=== PATIENT | male | born 1950 ===

== ENCOUNTER 2021-07-24 08:26 | Outpatient (REF) | payer BC, SELFPAY ==
[2021-07-24 11:25] LABS: MANUAL DIFF FLAG NO
[2021-07-24 11:30] LABS: Basophils Percent Auto 0.4 % (0-2); Eosinophils Absolute Auto 0.1 X10*3/uL (0.0-0.4); Eosinophils Percent Auto 2.2 % (0-4); Hematocrit 45.3 % (42-52); Hemoglobin 14.9 g/dl (14.0-18.0); Imm Gran Abs Auto 0.02 X10*3/uL (0.00-0.03); Imm Gran Pct Auto 0.4 % (0.0-0.4); Lymphocytes Absolute Auto 2.3 X10*3/uL (1.2-4.9); Lymphocytes Percent Auto 41.7 % (20-40); Mean Corpuscular HGB Conc 32.9 g/dl (31.0-36.0); Mean Corpuscular Hemoglobin 31.1 pg (27.0-33.0); Mean Corpuscular Volume 94.6 fL (80-98); Mean Platelet Volume 12.2 fL (9.4-12.4); Monocytes Absolute Auto 0.4 X10*3/uL (0.1-1.2); Monocytes Percent Auto 7.7 % (2-11); Neutrophils Absolute Auto 2.6 X10*3/uL (2.0-8.3); Neutrophils Percent Auto 47.6 % (45-73); Platelet Count 169 X10*3/uL (160-400); Red Blood Count 4.79 X10*6/uL (4.60-5.80); Red Cell Distribution Width 12.3 % (11.0-16.0); White Blood Count 5.5 X10*3/uL (4.8-10.8)
[2021-07-24 11:34] LABS: Appearance Urine CLEAR; Color Urine YELLOW; Glucose Urine UA NEG (NEG); Leukocyte Esterase Urine NEG (NEG); Nitrite Urine NEG (NEG); Urine Blood 2+ (NEG); Urine Ketones NEG (NEG); Urine Protein NEG (NEG-TRACE)
[2021-07-24 11:47] LABS: Estimated Average Glucose 114 mg/dL; Hemoglobin A1C 149.4919 umol/L; Hemoglobin A1c % 5.6 %
[2021-07-24 11:56] LABS: Alanine Aminotransferase 16 U/L (0-40); Albumin Level 4.2 g/dL (3.5-5.0); Alkaline Phosphatase 72 U/L (39-117); Anion Gap 11 (12-20); Aspartate Amino Transferase 24 U/L (5-37); Bilirubin Total 0.7 mg/dL (0.0-1.0); Blood Urea Nitrogen 19 mg/dL (9-16); Calcium 9.2 mg/dL (8.4-10.2); Carbon Dioxide 31 mmol/L (22-29); Chloride 104 mmol/L (96-108); Cholesterol 196 mg/dL; Estimated Glomerular Filt Rate > 60; Glucose Fasting 106 mg/dL (60-99); HDL Cholesterol 51 mg/dL; LDL Cholesterol Calculated 127 mg/dl; Potassium 4.7 mmol/L (3.3-5.1); Sodium 141 mmol/L (135-145); Total Protein 6.8 g/dL (6.5-8.0); Triglycerides 93 mg/dL
[2021-07-24 12:26] LABS: Creatinine Urine 140.42 mg/dL; Microalbum/Creatinine Ratio Ur 7.1 ug/mg cr
[2021-07-24 12:30] LABS: PSA,Total (Free>4and<10) 5.96 ng/mL (0.00-4.00); Thyroid Stimulating Hormone 0.97 uIU/mL (0.32-4.0); Vitamin D 25-OH Total 33.4 ng/mL (>30)
[2021-07-27 15:02] LABS: Free Prostate Spec Ag 0.8 ng/mL; Percent Free Prostate Spec Ag 17 % (calc) (>25); Prostate Specific Ag Total 4.8 ng/mL (< OR = 4.0)
== END 2021-07-24 08:27 | disposition home or self-care (01) ==
LOC: HO.HMGCLDS 08:26
PROVIDERS: PCP Internal Medicine; Visit Provider Internal Medicine
DX: Z00.00 Encounter for general adult medical examination without abnormal findings (principal); Z12.5 Encounter for screening for malignant neoplasm of prostate; I10 Essential (primary) hypertension; E78.00 Pure hypercholesterolemia, unspecified; I77.810 Thoracic aortic ectasia
CPT/HCPCS: 36415; 80053; 80061; 81001; 82043; 82306; 83036; 84153; 84154; 84443; 85025

== ENCOUNTER → 2021-09-01 14:01 | Outpatient (REF) | payer BC, SELFPAY ==
--- NOTE | ~2021-09-01 | XR_ITS ---
EXAMINATION: XR CHEST CLINICAL INFORMATION: Aortic root dilatation. COMPARISON: 01/04/2017 chest radiographs. TECHNIQUE: 2 views of the chest were obtained. FINDINGS: The lungs are clear. The heart is unremarkable. The thoracic aorta is again seen demonstrating tortuosity and mild ectasia without significant change. Mild multilevel degenerative changes are seen in the thoracolumbar spine. XR/XR chest 2V IMPRESSION: No acute cardiopulmonary process.
--- NOTE | 2021-09-01 14:00 | CA_ITS ---
Transthoracic Echocardiogram Patient (Last, First, Middle): Jamie Sparks J Gender: Male Date of : 1950 Age: 70 Procedure Date: 09/01/2021 Procedure Type: Transthoracic Echocardiogram Location: OP Height: 185.42 cm Weight: 90.72 kg BSA: 2.15 m2 Heart Rate: bpm BP: 122 / 70 mmHg Service Counter Cashier: Referring MD: Rashi Jalloh MD DO Symptoms: I77.810 AORTIC ROOT DILATION Study Quality: Good ECG Rhythm: Sinus Conclusions: - The left ventricular systolic function is normal. The calculated ejection fraction is 62% by biplane method. - There is mild mitral valve regurgitation. - There is mild tricuspid valve regurgitation. - Trace to mild aortic regurgitation. - There is mild dilatation of the ascending aorta measuring 4.10 cm. Findings Left Ventricle Normal left ventricular cavity size. There is mildly increased left ventricular wall thickness. The left ventricular systolic function is normal. The calculated ejection fraction is 62% by biplane method. E/E prime ratio is between 8 and 15 consistent with indeterminate filling pressures. Evidence suggests grade I (mild) diastolic dysfunction. Right Ventricle Normal right ventricular cavity size and systolic function. Atria Both atria are normal in size. Aortic Valve There is mild calcification of the aortic valve. There is no aortic valve stenosis. Trace to mild aortic regurgitation. Mitral Valve The mitral valve appears normal. There is mild mitral valve regurgitation. There is no mitral valve stenosis. Pulmonic Valve The pulmonic valve was not well visualized. Tricuspid Valve Normal tricuspid valve structure. There is mild tricuspid valve regurgitation. The pulmonary artery systolic pressure is normal. Great Vessels There is mild dilatation of the ascending aorta measuring 4.10 cm. Venous The inferior vena cava is normal in size and collapses greater than 50% with inspiration. Pericardium/Pleural There is a trivial pericardial effusion. Prior Study Comparison No significant change compared to prior study dated: 11/02/2019. Measurements 2D Linear Measurements IVSd: 1.10 0.6-0.9/0.6-1.0 cm LVIDd: 4.39 3.9-5.3/4.2-5.9 cm LVIDd Index: 2.04 2.4-3.2/2.2-3.1 cm/m2 LVIDs: 3.03 2.0-3.6 cm LVPWd: 1.12 0.7-1.1 cm Ao Root: 4.80 2.1-3.5 cm LA Diam: 2.60 2.7-3.8/3.0-4.0 cm LAIDs Index: 1.21 1.5-2.3 cm/m2 LV Mass: 212.37 67-162/88-224 g LV Mass Index: 98.78 43-95/49-115 g/m2 LVOT Diam: 2.50 3.0+(-)1.3 cm 2D Systolic Function EF 4C: 61.70 >55% EF 2C: 65.10 >55% EF BiP: 61.90 >55% Mitral Valve MV Pk E: 0.46 MV PK A: 0.85 MV Decel Time: 282.00 E/A: 0.50 E'Lateral: 5.00 E'Medial: 3.26 E/E' Med: 14.20 E/E' Lat: 9.30 PHT: 82.00 MVA PHT: 2.68 Decel [place]: 1.64 Aortic Valve AoV Pk Basil: 1.29 AoV Mn Basil: 0.88 AoV VTI: 0.28 AoV Pk Grad: 7.00 Aov Mn Grad: 4.00 DELMI Cont.VTI: 3.97 LVOT LVOT Pk Basil: 1.02 LVOT Mn Basil: 0.59 LVOT VTI: 0.23 LVOT Pk Grad: 4.00 LVOT Mn Grad: 2.00 LVOT Diam: 2.50 LVOT Area: 4.91 Diastolic Function MV Pk E: 0.46 MV Pk A: 0.85 E/A: 0.50 E'Medial: 3.26 E/E' Med: 14.20 E' Laterial: 5.00 E/E' Lat: 9.30 Right Ventricle TAPSE (mm): 20.00 TVS' Basil: 9.00 Tricuspid Valve TR Pk Basil: 1.98 TR Pk Grad: 16.00 Great Vessels Aorta Ao Root-2D: 4.80 2.0-3.7 cm Ao Asc: 4.10 2.1-3.4 cm Pulmonary Valve PV Pk Basil: 0.80 Peak PV Grad: 3.00 Updated in Other Vendor System with Status of Final Roger Mcpherson MD electronically signed on 09/01/2021 4:32:17 PM with status of Final
--- NOTE | 2021-09-01 14:00 | ECG_ITS ---
Test Reason : aortic root dilation Blood Pressure : / mmHG Vent. Rate : 055 BPM Atrial Rate : 055 BPM P-R Int : 234 ms QRS Dur : 094 ms QT Int : 432 ms P-R-T Axes : 039 -43 029 degrees QTc Int : 413 ms Sinus bradycardia with 1st degree A-V block with Premature atrial complexes Left axis deviation Abnormal ECG When compared with ECG of 29-DEC-2015 08:25, Premature atrial complexes are now Present Referred By: Rashi Jalloh Electronically Signed By:Chance Lange
== END ==
LOC: HO.CARD 14:01
PROVIDERS: Visit Provider Internal Medicine
DX: I77.810 Thoracic aortic ectasia (principal)
CPT/HCPCS: 71046; 93005; 93306

== ENCOUNTER 2021-09-16 14:27 | Outpatient (REF) | payer BC, SELFPAY | END 2021-09-16 14:28 | disposition home or self-care (01) | LOC: HO.LAB 14:27 | PROVIDERS: Visit Provider Internal Medicine | DX: Z20.822 Contact with and (suspected) exposure to COVID-19 (principal) | CPT/HCPCS: C9803; U0003; U0005 ==

== ENCOUNTER 2021-10-12 13:00 | Outpatient (RCR) | payer BC, SELFPAY | END 2021-11-13 13:45 | disposition home or self-care (01) | LOC: HO.PTCHIC 13:00 | PROVIDERS: PCP Internal Medicine; Visit Provider Internal Medicine | DX: M48.062 Spinal stenosis, lumbar region with neurogenic claudication (principal) | CPT/HCPCS: 97110; 97161 ==

== ENCOUNTER 2021-10-16 07:23 | Outpatient (REF) | payer BC, SELFPAY ==
--- NOTE | ~2021-10-16 | MR_ITS ---
EXAMINATION: MR LUMBAR SPINE WITHOUT CONTRAST CLINICAL INFORMATION: Left-sided low back pain. COMPARISON: None TECHNIQUE: MRI of the lumbar spine was obtained using routine sequences without contrast. FINDINGS: VERTEBRAL BODIES AND PARASPINAL STRUCTURES: There is moderate endplate edema and severe disc space narrowing at the L2-L3 level. Rightward curvature of the lumbar spine also centered at this level. There are no compression fractures. There is significant disc space narrowing as well at the L1-L2 and L4-L5 levels. Mild anterolisthesis noted at the L3-L4 level. The marrow signal is heterogeneous with fatty endplate changes. The paraspinal soft tissues appear normal. A large 9 cm cyst arises from the posterolateral right renal cortex. The imaged bony pelvis appears normal. CONUS MEDULLARIS AND CAUDA EQUINA: Normal, terminating at the level of T12. No lower cord signal abnormality is seen. The cauda equina nerve roots appear normal. SPINAL LEVELS: L1-L2: Mild retrosubluxation and generalized disc bulge with endplate spurring slightly impressing upon the left L2 nerve root in the left subarticular zone. No central canal stenosis. Mild left foraminal narrowing. L2-L3: Moderate endplate edema and significant loss of disc height with a diffuse disc bulge, endplate spurring, and hypertrophic facet arthropathy resulting in moderate central canal stenosis and thecal sac distortion. Bulging disc impresses upon the right L3 nerve root in the subarticular zone. [id number] foraminal narrowing, worse on the left side. Endplate spurring impressing upon the extraforaminal left L2 nerve root. L3-L4: Mild anterolisthesis and unroofed disc with advanced facet arthropathy and thickening of the ligamentum flavum resulting in high-grade central canal stenosis and thecal sac compression. No significant foraminal narrowing. L4-L5: Severe disc space narrowing and diffuse disc bulge with hypertrophic facet arthropathy. No central canal stenosis. Focal right subarticular zone disc extrusion and endplate spurring slightly impress upon the right L5 nerve root. Moderate right foraminal narrowing and milder left foraminal encroachment. L5-S1: Generalized disc bulge and moderate facet arthropathy without central canal stenosis. Mild bilateral foraminal narrowing. MR/MR lumbar spine wo con IMPRESSION: Mild rightward curvature of the lumbar spine centered at the L2-L3 level where there is significant endplate edema and severe spondylosis resulting in moderate central canal stenosis. Bulging disc impressing upon the right L3 nerve root. [id number]-zu-bhmbcz foraminal narrowing with endplate spurring impressing upon the extraforaminal left L2 nerve root. Mild anterolisthesis and advanced facet arthropathy with unroofed disc at the L3-L4 level resulting in high-grade central canal stenosis and thecal sac compression. Severe degenerative disc disease and facet arthropathy at L4-L5 without central canal stenosis. Focal right subarticular zone disc extrusion impressing upon the right L5 nerve root. Moderate right foraminal narrowing.
== END 2021-10-16 07:24 | disposition home or self-care (01) ==
LOC: HO.MRI 07:23
PROVIDERS: PCP Internal Medicine; Visit Provider Internal Medicine
DX: M48.062 Spinal stenosis, lumbar region with neurogenic claudication (principal)
CPT/HCPCS: 72148

== ENCOUNTER 2022-08-26 11:58 | Outpatient (REF) | payer MEDICARE, SELFPAY ==
[2022-08-30 10:44] LABS: Percent Free Prostate Spec Ag 18 % (calc) (>25); Prostate Specific Ag Total 5.6 ng/mL (< OR = 4.0)
== END 2022-08-26 11:59 | disposition home or self-care (01) ==
LOC: HO.LAB 11:58
PROVIDERS: PCP Internal Medicine; Visit Provider Urology
DX: Z12.5 Encounter for screening for malignant neoplasm of prostate (principal); R97.20 Elevated prostate specific antigen [PSA]
CPT/HCPCS: 36415; 84154

== ENCOUNTER 2023-03-01 09:05 | Outpatient (REF) | payer MEDICARE, SELFPAY ==
[2023-03-02 11:03] LABS: Free Prostate Spec Ag 1.1 ng/mL; Percent Free Prostate Spec Ag 20 % (calc) (>25); Prostate Specific Ag Total 5.6 ng/mL (< OR = 4.0)
== END 2023-03-01 09:06 | disposition home or self-care (01) ==
LOC: HO.LAB 09:05
PROVIDERS: PCP Internal Medicine; Visit Provider Urology
DX: R97.20 Elevated prostate specific antigen [PSA] (principal)
CPT/HCPCS: 36415; 84154

== ENCOUNTER 2023-07-28 08:24 | Outpatient (REF) | payer MEDICARE, SELFPAY ==
[2023-07-28 08:41] LABS: MANUAL DIFF FLAG NO
[2023-07-28 08:49] LABS: Basophils Percent Auto 0.4 % (0-2); Eosinophils Percent Auto 0.3 % (0-4); Hematocrit 46.1 % (42.0-52.0); Hemoglobin 15.4 g/dl (14.0-18.0); Imm Gran Abs Auto 0.03 X10*3/uL (0.00-0.03); Imm Gran Pct Auto 0.4 % (0.0-0.4); Lymphocytes Absolute Auto 2.2 X10*3/uL (1.2-4.9); Lymphocytes Percent Auto 27.6 % (20-40); Mean Corpuscular HGB Conc 33.4 g/dl (31.0-36.0); Mean Corpuscular Hemoglobin 31.2 pg (27.0-33.0); Mean Corpuscular Volume 93.5 fL (80.0-98.0); Mean Platelet Volume 10.8 fL (9.4-12.4); Monocytes Absolute Auto 0.4 X10*3/uL (0.1-1.2); Monocytes Percent Auto 5.5 % (2-11); Neutrophils Absolute Auto 5.1 x10*3/uL (2.0-8.3); Neutrophils Percent Auto 65.8 % (45-73); Platelet Count 204 X10*3/uL (160-400); Red Blood Count 4.93 X10*6/uL (4.60-5.80); Red Cell Distribution Width 11.8 % (11.0-16.0); White Blood Count 7.8 X10*3/uL (4.8-10.8)
[2023-07-28 09:33] LABS: Alanine Aminotransferase 15 U/L (0-40); Albumin Level 4.1 g/dL (3.5-5.0); Alkaline Phosphatase 81 U/L (39-117); Anion Gap 13 (12-20); Aspartate Amino Transferase 22 U/L (5-37); Bilirubin Total 0.6 mg/dL (0.0-1.0); Blood Urea Nitrogen 19 mg/dL (9-16); Carbon Dioxide 29 mmol/L (22-29); Chloride 105 mmol/L (96-108); Cholesterol 170 mg/dL (<200); Estimated Glomerular Filt Rate > 60; Glucose Fasting 108 mg/dL (60-99); HDL Cholesterol 51 mg/dL (>40); LDL Cholesterol Calculated 102 mg/dL (<100); Sodium 143 mmol/L (135-145); Total Protein 7.4 g/dL (6.5-8.0); Triglycerides 86 mg/dL (<150)
[2023-07-28 09:44] LABS: PSA,Total (Free>4and<10) 7.98 ng/mL (0.00-4.00)
[2023-07-28 09:50] LABS: Thyroid Stimulating Hormone 0.89 uIU/mL (0.32-4.0); Vitamin D 25-OH Total 39.7 ng/mL (>30)
[2023-07-29 11:09] LABS: Percent Free Prostate Spec Ag 13 % (calc) (>25); Prostate Specific Ag Total 7.6 ng/mL (< OR = 4.0)
== END 2023-07-28 08:25 | disposition home or self-care (01) ==
LOC: HO.LAB 08:24
PROVIDERS: PCP Internal Medicine; Visit Provider Internal Medicine
DX: Z00.00 Encounter for general adult medical examination without abnormal findings (principal); I10 Essential (primary) hypertension; E78.00 Pure hypercholesterolemia, unspecified; R97.20 Elevated prostate specific antigen [PSA]; Z12.5 Encounter for screening for malignant neoplasm of prostate; M43.06 Spondylolysis, lumbar region; M51.86 Other intervertebral disc disorders, lumbar region
CPT/HCPCS: 36415; 80053; 80061; 82306; 84153; 84154; 84443; 85025

== ENCOUNTER 2023-10-17 10:44 | Emergency (ER) | payer MEDICARE, SELFPAY ==
--- NOTE | ~2023-10-17 | CT_ITS ---
EXAMINATION: CT ABDOMEN AND PELVIS WITH CONTRAST CLINICAL INFORMATION: Left lower quadrant abdominal pain COMPARISON: None available. TECHNIQUE: Multidetector volumetric images were obtained from the superior aspect of the liver through the pubic symphysis following administration 85 mL of Omnipaque 350 intravenous contrast. Sagittal and coronal reformatted images were obtained on the technologist's workstation. Oral contrast: No This CT examination was performed using dose optimization techniques as appropriate, variously including the following: *Automated exposure control *Adjustment of mA and/or kV according to patient size (this includes techniques or standardized protocols for targeted exams where dose is matched to indication/reason for exam; i.e. extremities or head) *Use of iterative reconstruction technique DLP: 691 mGy-cm FINDINGS: LUNG BASES: The visualized lung bases are unremarkable. LIVER, GALLBLADDER, AND BILIARY TREE: The liver is normal in size, shape, and attenuation. No focal hepatic lesion or biliary ductal dilatation is present. The gallbladder is unremarkable with no evidence of radiopaque gallstones, gallbladder wall thickening, or obvious pericholecystic inflammatory changes. PANCREAS: Unremarkable. SPLEEN: Unremarkable. ADRENAL GLANDS: Unremarkable. KIDNEYS AND URETERS: Nonobstructive less than 1 mm stone at the lower pole of the left kidney. No ureteral calculi. No hydronephrosis There is an exophytic cyst at the upper pole of the right kidney measuring 9.6 cm. Density measurement of 0 Hounsfield units, simple fluid. No follow-up imaging is recommended for simple renal cyst. BLADDER: Unremarkable. GASTROINTESTINAL TRACT: There are numerous diverticula of the sigmoid colon. Scattered diverticula in the remainder of colon. There is edematous thickening of the mid sigmoid colon with subtle stranding in the pericolonic fat around the straightening consistent with a diverticulitis. No perforation or abscess however. No bowel obstruction. There is a moderate volume of stool in the colon. The appendix is normal . The small bowel loops are unremarkable. The stomach is normal. There is no hiatal hernia. ABDOMINAL WALL: No significant hernia is appreciated. Surgical mesh in right groin. No evidence of recurrent hernia. LYMPH NODES: Normal. VASCULAR: Atherosclerotic vascular calcifications of aorta and iliac arteries. There is no aneurysm. PELVIC VISCERA: Prostate enlarged measuring 6 cm transverse. Coarse calcifications within the prostate. OSSEOUS STRUCTURES: Multilevel degenerative spondylosis spine. Disc height narrowing, endplate spurring and facet joint arthrosis throughout the spine. This is most severe at L4-L5, L1-L2 and L2-L3 disc levels. CT/CT abdomen pelvis w IV con IMPRESSION: 1. Marked diverticulosis of the sigmoid colon. There is mild diverticulitis of the mid sigmoid colon. 2. Enlarged prostate. 3. Surgical mesh in right groin. No evidence of recurrent hernia. Fleischner guidelines were followed.
[2023-10-17 10:48] VITALS: BP 122/72; PULSE 63; RESP 17; TEMP 36.6; O2SAT 98; BMI 26.4
[2023-10-17 11:07] LABS: MANUAL DIFF FLAG NO
[2023-10-17 11:10] LABS: Basophils Percent Auto 0.3 % (0-2); Hematocrit 44.6 % (42.0-52.0); Hemoglobin 14.9 g/dl (14.0-18.0); Imm Gran Abs Auto 0.01 X10*3/uL (0.00-0.03); Imm Gran Pct Auto 0.1 % (0.0-0.4); Lymphocytes Percent Auto 26.8 % (20-40); Mean Corpuscular HGB Conc 33.4 g/dl (31.0-36.0); Mean Corpuscular Hemoglobin 30.8 pg (27.0-33.0); Mean Corpuscular Volume 92.1 fL (80.0-98.0); Mean Platelet Volume 10.5 fL (9.4-12.4); Monocytes Absolute Auto 0.5 X10*3/uL (0.1-1.2); Monocytes Percent Auto 6.4 % (2-11); Neutrophils Percent Auto 66.4 % (45-73); Platelet Count 205 X10*3/uL (160-400); Red Blood Count 4.84 X10*6/uL (4.60-5.80); Red Cell Distribution Width 12.1 % (11.0-16.0); White Blood Count 7.5 X10*3/uL (4.8-10.8)
[2023-10-17 11:12] LABS: Appearance Urine Clear; Color Urine Dark Yellow; Glucose Urine UA Negative (Negative); Leukocyte Esterase Urine Trace (Negative); Nitrite Urine Negative (Negative); Specific Gravity - Urine 1.025 (1.005-1.025); UMIC TRIGGER UACC YES; Urine Blood Moderate (2+) (Negative); Urine Ketones Trace mg/dL (Negative); Urine Protein Trace mg/dL (Neg-Trace)
[2023-10-17 11:14] LABS: Bacteria Urine None Seen (None Seen); Hyaline Casts Urine 0-2 /LPF (0-2); RBC Urine >20 /HPF (0-2); Squamous Epithelial Cell Urine 0-2 /HPF (0-2); WBC Urine 0-5 /HPF (0-5)
[2023-10-17 11:29] LABS: Alanine Aminotransferase 16 U/L (0-40); Albumin Level 4.3 g/dL (3.5-5.0); Alkaline Phosphatase 75 U/L (39-117); Anion Gap 13 (12-20); Aspartate Amino Transferase 22 U/L (5-37); Bilirubin Direct 0.1 mg/dL (0.0-0.5); Bilirubin Total 0.4 mg/dL (0.0-1.0); Blood Urea Nitrogen 17 mg/dL (9-16); Calcium 10.2 mg/dL (8.4-10.2); Carbon Dioxide 32 mmol/L (22-29); Chloride 103 mmol/L (96-108); Creatinine Clr Calc Pharmacy 63.5; Estimated Glomerular Filt Rate > 60; Glucose Random 89 mg/dL (60-115); Lipase 34 U/L (8-78); Potassium 4.1 mmol/L (3.3-5.1); Sodium 144 mmol/L (135-145); Total Protein 7.6 g/dL (6.5-8.0)
[2023-10-17 12:00] LABS: IDNOW Serial# 08D9AD1C
[2023-10-17 12:01] LABS: COVID-19 Test Negative (Negative)
--- NOTE | 2023-10-17 13:51 | ED_ITS ---
HPI - General Adult General Chief complaint: Abdominal Pain Stated complaint: Diverticulitis Time Seen by Provider: 10/17/23 14:19 Source: patient, RN notes reviewed and old records reviewed Mode of arrival: ambulatory History of Present Illness HPI narrative: 73-year-old male with no significant past medical history presenting to the ED complaining of nonbloody diarrhea and lower abdominal pain x 5 days. Also reports decreased p.o. intake/appetite. Denies fever/chills, nausea/vomiting, dysuria/hematuria, flank pain, testicular/scrotal pain/swelling Related Data Previous Rx's Medication Instructions Recorded amoxicillin 875 mg-potassium 1 tab PO TID 7 days #21 tabs 10/17/23 clavulanate 125 mg tablet Allergies Allergy/AdvReac Type Severity Reaction Status Date / Time No Known Allergies Allergy Verified 10/17/23 10:47 [No Known Allergies*] Review of Systems 2 Review of Systems: Constitutional: No Fever, No Chills ENT/Mouth: No Ear Pain, No Nasal Congestion, No sore throat, No Rhinorrhea, No Swallowing Difficulty Cardiovascular: No Chest Pain, No SOB Respiratory: No Cough, No Wheezing Gastrointestinal: No Nausea, No Vomiting, +Diarrhea, No Constipation, +Abdominal pain Genitourinary: No Dysuria, No Urinary Frequency, No Hematuria, No Urinary Incontinence/retention, No Flank Pain Musculoskeletal: No joint pain, No Myalgias, No Joint Swelling Skin: No Skin Lesions, No rash Neuro: No Weakness Yes all other systems are reviewed and are negative Constitutional: Constitutional: Reports as per [facility] Past Medical History Attestation statement: The following information was validated with the patient. Source: old records reviewed Social History Social History Smoked in Last 30 Days: No Use of substances other than those prescribed or required for medical reasons: No Advance Directives: No Advance Directives Information Provided: No Physical Exam ED Vital Signs: Vital Signs - 24 hr 10/17/23 10:48 10/17/23 13:52 10/17/23 14:48 Temperature 98 F 98 F Pulse Rate 63 58 57 Respiratory Rate 17 17 16 Blood Pressure 122/72 163/84 H 132/78 Pulse Oximetry 98 98 97 Oxygen Delivery Method Room Air Room Air 10/17/23 15:56 Temperature 98.3 F Pulse Rate 59 Respiratory Rate 16 Blood Pressure 128/82 Pulse Oximetry 98 Oxygen Delivery Method Room Air BMI result Body Mass Index 26.4 Const General: cooperative, healthy appearing and no acute distress Orientation/consciousness: patient oriented x3 Limitations: no limitations HENMT Head: Yes normal to inspection and Yes atraumatic Ears: hearing grossly normal bilaterally General nose exam: Normal external nose present Face and sinus: Yes normal facial exam Eyes General: appearance normal, both eyes and all related structures EOM: EOMs intact bilaterally Neck Neck: Yes normal visual inspection and Yes no meningeal signs Resp Effort & Inspection: normal respiratory effort and no respiratory distress Auscultation: clear to auscultation bilaterally Cardio Rate: regular rate Heart sounds: S1 normal heart sound present and S2 normal heart sound present GI Inspection: Yes normal to inspection Palpation (GI): Soft to palpation, Tenderness to palpation present (GI) in the LLQ; with no rebound tenderness, no guarding and not rigid General: Yes no CVA tenderness Back/Spine/Pelvis Back: no CVA tenderness Skin Rashes: no rashes Wounds: no wounds Neuro General: patient oriented x3, tone normal and no meningeal signs Cranial nerves: Yes CN's II-XII intact bilaterally Gait exam (Neuro): Normal gait present Extrem General: Yes normal to inspection Course Course Course Narrative: RME performed by Ros Yu PA-C. Patient is a 73 year old assigned male at presenting to the emergency department with lower abdominal pain. Detailed physical exam and review of systems are deferred to the singeing torch operator. Labs and imaging. Patient placed back in the waiting room pending room availability and results. -1619--labs reassuring. UA with RBCs, not infected CT abdomen pelvis w IV con IMPRESSION: 1. Marked diverticulosis of the sigmoid colon. There is mild diverticulitis of the mid sigmoid colon. 2. Enlarged prostate. 3. Surgical mesh in right groin. No evidence of recurrent hernia. Fleischner guidelines were followed. > results discussed. Patient tolerating p.o. safe for discharge home with p.o. antibiotics and PCP follow-up Results discussed with patient including worrisome signs and symptoms and strict return precautions, and when to return to the emergency department. They verbalized understanding and feel safe for discharge at this time. Medications Administered Discontinued Medications Generic Name Dose Route Start Last Admin Trade Name Freq PRN Reason Stop Dose Admin Sodium Chloride 1,000 mls @ 999 mls/hr 10/17/23 14:30 10/17/23 14:43 Ns IV 10/17/23 15:30 999 mls/hr .Q1H1M [place] Administration Iohexol 100 ml 10/17/23 15:31 10/17/23 15:31 Iohexol 350 Mg/Ml 100 Ml Infus..Btl IV 10/17/23 15:32 85 ml ONCE ONE Administration Ketorolac Tromethamine 15 mg 10/17/23 14:28 10/17/23 14:48 Ketorolac Tromethamine 15 Mg/Ml Vial IVPUSH 10/17/23 14:29 15 mg ONCE ONE Administration Medical Decision Making Medical Decision Making MDM Narrative: 73-year-old male with no significant past medical history presenting to the ED complaining of nonbloody diarrhea and lower abdominal pain x 5 days. Also reports decreased p.o. intake/appetite. On exam vital signs stable, NAD, nontoxic appearing, abdomen soft with LLQ tenderness, no rebound or guarding. Concern for diverticulitis/colitis vs appendicitis vs renal stone/pyelo. Rule out UTI. Lower suspicion for testicular torsion/epididymitis/orchitis Plan: Labs, UA, CTAP, IVF, pain control Please refer to course for remaining clinical decision making, interpretation of labs/imaging results, and discussions with consultants and/or family members. Differential Diagnosis Differential Diagnoses: The differential diagnosis associated with the presentation includes As above Admission/Observation Consideration of admission/observation: Escalation of care including admission/observation considered Lab Data [facility] Lab Attestation statement: I reviewed the patient's lab results. 10/17/23 10:59 10/17/23 10:59 Labs: Lab Results 10/17/23 Range/Units 10:59 WBC 7.5 (4.8-10.8) X10*3/uL RBC 4.84 (4.60-5.80) X10*6/uL Hgb 14.9 (14.0-18.0) g/dl Hct 44.6 (42.0-52.0) % MCV 92.1 (80.0-98.0) fL MCH 30.8 (27.0-33.0) pg MCHC 33.4 (31.0-36.0) g/dl RDW 12.1 (11.0-16.0) % Plt Count 205 (160-400) X10*3/uL MPV 10.5 (9.4-12.4) fL Immature Gran % (Auto) 0.1 (0.0-0.4) % Neut % (Auto) 66.4 (45-73) % Lymph % (Auto) 26.8 (20-40) % [place] % (Auto) 6.4 (2-11) % Eos % (Auto) 0.0 (0-4) % Baso % (Auto) 0.3 (0-2) % Lymph # (Auto) 2.0 (1.2-4.9) X10*3/uL [place] # (Auto) 0.5 (0.1-1.2) X10*3/uL Eos # (Auto) 0.0 (0.0-0.4) X10*3/uL Baso # (Auto) 0.0 (0.0-0.2) X10*3/uL Abs Immat Gran (auto) 0.01 (0.00-0.03) X10*3/uL Absolute Neuts (auto) 5.0 (2.0-8.3) x10*3/uL Absolute Nucleated RBC 0.000 (0.0-0.012) X10*3/uL Nucleated RBC % (auto) 0.0 (0.0-0.2) /100WBC Sodium 144 (135-145) mmol/L Potassium 4.1 (3.3-5.1) mmol/L Chloride 103 (96-108) mmol/L Carbon Dioxide 32 H (22-29) mmol/L Anion Gap 13 (12-20) BUN 17 H (9-16) mg/dL Creatinine 1.17 (0.5-1.4) mg/dL Estim Creat Clear Calc 63.5 Estimated GFR > 60 Random Glucose 89 (60-115) mg/dL Calcium 10.2 (8.4-10.2) mg/dL Magnesium 2.1 (1.6-2.6) mg/dL Total Bilirubin 0.4 (0.0-1.0) mg/dL Direct Bilirubin 0.1 (0.0-0.5) mg/dL AST 22 (5-37) U/L ALT 16 (0-40) U/L Alkaline Phosphatase 75 (39-117) U/L Total Protein 7.6 (6.5-8.0) g/dL Albumin 4.3 (3.5-5.0) g/dL Lipase 34 (8-78) U/L Urine Color Dark Yellow Urine Appearance Clear Urine pH 5.0 (5.0-9.0) Ur Specific [place] 1.025 (1.005-1.025) Urine Protein Trace (Neg-Trace) mg/dL Urine Glucose (UA) Negative (Negative) mg/dL Urine Ketones Trace (Negative) mg/dL Urine Blood Moderate (2+) H (Negative) Urine Nitrite Negative (Negative) Ur Leukocyte Esterase Trace H (Negative) Urine RBC >20 H (0-2) /HPF Urine WBC 0-5 (0-5) /HPF Ur Squamous Epith Cells 0-2 (0-2) /HPF Urine Bacteria None Seen (None Seen) Hyaline Casts 0-2 (0-2) /LPF COVID-19 (CAIN) Negative (Negative) COVID-19 Clin Com See Note Independent Interpretation I performed an independent interpretation of an: CT Scan Radiology Impression Discussion of test interpretation with radiology: I have reviewed the radiologist's reading. External Record Review External record reviewed: Inpatient record, Office record, Outpatient record, Prior outpatient labs, Prior outpatient radiology, Primary care record and Outside ED record Tests considered The following testing was considered but not selected: As above Prescription Management I considered prescription management with: Pain Medication Discharge Plan Discharge Clinical Impression: Diverticulitis Patient Disposition: Home, Self-Care Instructions: Diverticulitis (ED), Diverticulitis Diet (ED) Additional Instructions: You have diverticulitis. Augmentin is an antibiotic please take as prescribed Please practice bland diet/clear liquid diet for the next 3 days Take Tylenol and Motrin for pain If pain persists or worsens/becomes unbearable, you have fever, persistent nausea/vomiting or unable to have a bowel movement return to the emergency department Follow-up with your doctor and system sales consultant Prescriptions: New amoxicillin-pot clavulanate 875-125 mg tablet 1 tab PO TID 7 Days Qty: 21 0RF Referrals: [facility] [Provider Group] - 1 week Rashi Jalloh DO [Primary Care Provider] - 3 days Interventions: ED Discharge Assessment Last Done: 10/17/23 16:35
[2023-10-17 13:52] VITALS: BP 163/84; PULSE 58; RESP 17; TEMP 36.6; O2SAT 98
[2023-10-17] MEDS: 0.9 % Sodium Chloride 1,000 ML 999 ML IV (14:43)
[2023-10-17 14:46] LABS: Magnesium 2.1 mg/dL (1.6-2.6)
[2023-10-17 14:48] VITALS: BP 132/78; PULSE 57; RESP 16; O2SAT 97
[2023-10-17] MEDS: Ketorolac Tromethamine 15 MG/ML VIAL IVPUSH (14:48)
--- NOTE | 2023-10-17 14:50 | PC.NURSE ---
a&ox4. vss and up to date. pt presents to the ED w/ lower abd pain/diarrhea x a few days. tender to the touch. denies n/v. 20gIV placed in the right AC - medication/IVF administered per provider order. pt aware of plan of care going forward. no sob/wob noted. respirations even and unlabored. call cao placed within reach.
[2023-10-17] MEDS: iohexoL 350 MG/ML 100 ML INFUS..BTL IV (15:31)
[2023-10-17 15:56] VITALS: BP 128/82; PULSE 59; RESP 16; TEMP 36.8; O2SAT 98
--- NOTE | 2023-10-17 16:35 | PC.NURSE ---
this rn assumed care of pt. pt explained d/c instructions at this time. no acute distress noted.
== END 2023-10-17 16:49 | disposition home or self-care (01) ==
PROVIDERS: Physician Assistant; Emergency Provider Emergency Medicine; PCP Internal Medicine
DX: K57.32 Diverticulitis of large intestine without perforation or abscess without bleeding (principal); Z11.52 Encounter for screening for COVID-19
CPT/HCPCS: 74177; 80048; 80076; 81001; 83690; 83735; 85025; 87635; 96374; 99284; 99285; J1885; Q9967

== ENCOUNTER 2024-02-01 10:33 | Outpatient (AMB) | payer MEDICARE, SELFPAY ==
--- NOTE | 2024-02-01 10:35 | MHC.OFFVIS ---
Vital Signs 02/01/24 10:44 Height 6 ft 1 in Weight 195 lb BMI 25.7 BP 118/61 Blood Pressure Location Lt brachial Position Sitting Pulse 54 Intake Visit Reasons: Diverticulitis Intake Note: Patient new consult for Diverticulitis. Patient denies any GI issues for today. [employer] Required: No Accompanied by: Self / Same As Patient Allergies No Known Allergies [No Known Allergies*] Allergy (Verified 02/01/24 10:34) HPI HPI Diverticulitis: Details: 73-year-old male is here today for initial consultation. Patient was sent to us by his PCP. Patient had episode of diverticulitis back in September diagnosed by CT scan. Patient was seen in the ER for left lower quadrant discomfort. Moderate diverticulosis of sigmoid colon with mild diverticulitis in sigmoid colon noted. Patient was placed on Augmentin. Patient reports that he has been feeling well since the episode. Patient reports that he is moving his bowels well without any issues. Patient reports that he is moving his bowels daily. Denies any abdominal pain or discomfort. He is not due for colonoscopy till next year. His colonoscopies are done at [facility] gastroenterology with Dr. Jc. Patient denies any melena, hematochezia, unintentional weight loss or ribbon like stools. Patient reports to be feeling well. Exercises daily. Reports to be eating food high in fiber. [facility] Surgical History (Updated 02/01/24 @ 10:38 by Whitney Santos) Hx of hernia repair History of melanoma Family History (Updated 02/01/24 @ 10:38 by Whitney Santos) Mother Lung cancer Social History (Updated 02/01/24 @ 10:36 by Whitney Santos) Household Members: Family Alcohol intake: current Alcohol intake frequency: holidays/special occasions only Patient Tobacco Use Status: Never used Tobacco Use of substances other than those prescribed or required for medical reasons: Yes Substance Use Type: Marijuana Review of Systems Const Denies weight gain and Denies weight loss ENT Reports no additional complaints, Denies dysphagia and Denies odynophagia Card Reports no additional complaints Resp Reports no additional complaints GI Denies abdominal pain, Denies belching, Denies melena, Denies bloating, Denies change in bowel habits, Denies dysphagia, Denies excessive flatus, Denies dyspepsia, Denies heartburn, Denies diarrhea, Denies loose stools, Denies nausea, Denies odynophagia and Denies vomiting Reports no additional complaints Musc Reports no additional complaints Neuro Reports no additional complaints Psych Reports no additional complaints Endo Reports no additional complaints Physical Exam Vital Signs: Last Vital Signs Pulse 54 02/01/24 10:44 BP 118/61 02/01/24 10:44 BMI result Body Mass Index 25.7 Const General: healthy appearing, no acute distress and well developed Nutritional Appearance: well nourished Orientation/consciousness: patient oriented x3 Resp Effort & Inspection: normal respiratory effort, able to speak in complete sentences, no tracheal deviation and symmetric chest movement Auscultation: clear to auscultation bilaterally Cardio Rate: regular rate GI Inspection: Yes normal to inspection and No distended Palpation (GI): Soft to palpation, not firm, nontender and No hepatosplenomegaly present Auscultation: normal bowel sounds General: Yes no CVA tenderness Back/Spine/Pelvis Back: no CVA tenderness Skin General skin exam: elasticity normal, turgor normal and dry skin Neuro General: patient oriented x3 Psych Appearance: grossly normal Mental Status: mental status grossly normal Results Reviewed Results Reviewed: FINDINGS: LUNG BASES: The visualized lung bases are unremarkable. LIVER, GALLBLADDER, AND BILIARY TREE: The liver is normal in size, shape, and attenuation. No focal hepatic lesion or biliary ductal dilatation is present. The gallbladder is unremarkable with no evidence of radiopaque gallstones, gallbladder wall thickening, or obvious pericholecystic inflammatory changes. PANCREAS: Unremarkable. SPLEEN: Unremarkable. ADRENAL GLANDS: Unremarkable. KIDNEYS AND URETERS: Nonobstructive less than 1 mm stone at the lower pole of the left kidney. No ureteral calculi. No hydronephrosis There is an exophytic cyst at the upper pole of the right kidney measuring 9.6 cm. Density measurement of 0 Hounsfield units, simple fluid. No follow-up imaging is recommended for simple renal cyst. BLADDER: Unremarkable. GASTROINTESTINAL TRACT: There are numerous diverticula of the sigmoid colon. Scattered diverticula in the remainder of colon. There is edematous thickening of the mid sigmoid colon with subtle stranding in the pericolonic fat around the straightening consistent with a diverticulitis. No perforation or abscess however. No bowel obstruction. There is a moderate volume of stool in the colon. The appendix is normal . The small bowel loops are unremarkable. The stomach is normal. There is no hiatal hernia. ABDOMINAL WALL: No significant hernia is appreciated. Surgical mesh in right groin. No evidence of recurrent hernia. LYMPH NODES: Normal. VASCULAR: Atherosclerotic vascular calcifications of aorta and iliac arteries. There is no aneurysm. PELVIC VISCERA: Prostate enlarged measuring 6 cm transverse. Coarse calcifications within the prostate. OSSEOUS STRUCTURES: Multilevel degenerative spondylosis spine. Disc height narrowing, endplate spurring and facet joint arthrosis throughout the spine. This is most severe at L4-L5, L1-L2 and L2-L3 disc levels. CT/CT abdomen pelvis w IV con IMPRESSION: 1. Marked diverticulosis of the sigmoid colon. There is mild diverticulitis of the mid sigmoid colon. 2. Enlarged prostate. 3. Surgical mesh in right groin. No evidence of recurrent hernia. Assessment & Plan Assessment & Plan (1) Diverticulosis: Code(s): K57.90 - Diverticulosis of intestine, part unspecified, without perforation or abscess without bleeding (2) History of diverticulitis: Code(s): Z87.19 - Personal history of other diseases of the digestive system Plan Patient was encouraged to increase fluid intake as well as fiber intake. Patient was encouraged to take [id number] probiotics. Follow-up with Dr. Jc office for colonoscopy. Patient will follow-up with his GI specialist. He is agreeable to this plan and verbalizes understanding of instructions. He was given the opportunity to ask questions and all questions answered. Thank you for allowing me to participate in his care Coding Level of Care Code New Pt Level 3 (97421) Diagnoses Diverticulosis K57.90 History of diverticulitis Z87.19 Time Spent (min) 40 Comment 30 minutes spent with patient and additional 10 minutes spent reviewing his records
[2024-02-01 10:44] VITALS: BP 118/61; PULSE 54; BMI 25.7
== END 2024-02-01 11:27 | disposition home or self-care (01) ==
PROVIDERS: PCP Internal Medicine; Visit Provider Nurse Practitioner Family
DX: K57.90 Diverticulosis of intestine, part unspecified, without perforation or abscess without bleeding (principal); Z87.19 Personal history of other diseases of the digestive system
CPT/HCPCS: 99203

== ENCOUNTER → 2024-02-01 10:33 | Outpatient (BNVA) | payer MEDICARE, SELFPAY | PROVIDERS: PCP Internal Medicine; Visit Provider Nurse Practitioner Family | DX: K57.92 Diverticulitis of intestine, part unspecified, without perforation or abscess without bleeding (principal); Z87.19 Personal history of other diseases of the digestive system | CPT/HCPCS: 99202 ==

== ENCOUNTER 2024-03-02 12:06 | Outpatient (REF) | payer MEDICARE, SELFPAY ==
[2024-03-02 13:22] LABS: Prostate Specific Antigen 8.53 ng/mL (<0.05-4.0)
== END 2024-03-02 12:07 | disposition home or self-care (01) ==
LOC: HO.LAB 12:06
PROVIDERS: PCP Internal Medicine; Visit Provider Physician Assistant
DX: N40.1 Benign prostatic hyperplasia with lower urinary tract symptoms (principal); Z12.5 Encounter for screening for malignant neoplasm of prostate
CPT/HCPCS: 36415; 84153

== ENCOUNTER 2024-05-30 12:21 | Outpatient (REF) | payer MEDICARE, SELFPAY ==
[2024-05-30 14:26] LABS: Prostate Specific Antigen 7.57 ng/mL (<0.05-4.0)
== END 2024-05-30 12:22 | disposition home or self-care (01) ==
LOC: HO.LAB 12:21
PROVIDERS: PCP Internal Medicine; Visit Provider Physician Assistant
DX: R97.20 Elevated prostate specific antigen [PSA] (principal); Z12.5 Encounter for screening for malignant neoplasm of prostate
CPT/HCPCS: 36415; 84153

== ENCOUNTER 2024-10-31 15:56 | Outpatient (RCR) | payer MEDICARE, SELFPAY | END 2024-11-01 10:49 | disposition home or self-care (01) | LOC: HO.PT 15:56 | PROVIDERS: PCP Internal Medicine; Visit Provider Internal Medicine | DX: M43.06 Spondylolysis, lumbar region (principal) | CPT/HCPCS: 97012; 97110; 97162; 97530 ==

== ENCOUNTER 2024-11-27 11:01 | Outpatient (AMB) | payer MEDICARE, SELFPAY ==
--- NOTE | 2024-11-27 11:03 | A.OFFPC_ITS ---
Vital Signs 11/27/24 11:15 Height 5 ft 11 in Weight 204 lb BMI 28.4 BP 142/82 H Blood Pressure Location Rt brachial Pulse 56 Pulse Source Pulse Oximeter Temp 97.5 F Pulse Oximetry (%) 98 Intake Visit Reasons: follow up Intake Note: trouble of right shoulder Allergies No Known Allergies [No Known Allergies*] Allergy (Verified 11/27/24 11:08) PFSH Medical History (Updated 11/27/24 @ 14:16 by Roberto Poe MD) Generalized anxiety disorder Essential hypertension Benign prostate hyperplasia Degenerative joint disease (DJD) of lumbar spine Surgical History (Updated 02/01/24 @ 10:38 by Whitney Santos) Hx of hernia repair History of melanoma Family History (Updated 02/01/24 @ 10:38 by Whitney Santos) Mother Lung cancer Social History (Updated 02/01/24 @ 10:36 by Whitney Santos) Household Members: Family Alcohol intake: current Alcohol intake frequency: holidays/special occasions only Patient Tobacco Use Status: Never used Tobacco Substance Use Type: Marijuana Physical exam (Primary Care) Vital Signs: Last Vital Signs Temp 97.5 F 11/27/24 11:15 Pulse 56 11/27/24 11:15 BP 142/82 H 11/27/24 11:15 Pulse Ox 98 11/27/24 11:15 BMI result Body Mass Index 28.4 Tobacco/Smoking Status: Tobacco use Status Patient Tobacco Use Status Never used Tobacco 11/27/24 11:04 Coding Level of Care Code New Pt Level 4 (25115) Complex EM visit Add On G2211 Diagnoses Degenerative joint disease (DJD) of lumbar spine M47.816 Benign prostate hyperplasia N40.0 Essential hypertension I10 Generalized anxiety disorder F41.1 Assessment & Plan Assessment & Plan (1) Degenerative joint disease (DJD) of lumbar spine: Code(s): M47.816 - Spondylosis without myelopathy or radiculopathy, lumbar region Category: Medical Plan: Condition is stable. Continue current regimen of Yoga and exercise. Importance of stretching exercise emphasized (2) Benign prostate hyperplasia: Code(s): N40.0 - Benign prostatic hyperplasia without lower urinary tract symptoms Category: Medical Plan: PSA to be ordered. (3) Essential hypertension: Code(s): I10 - Essential (primary) hypertension Category: Medical Plan: Blood pressure is in range (4) Generalized anxiety disorder: Code(s): F41.1 - Generalized anxiety disorder Category: Medical Plan: Continue current medications. Will order lorazepam, when patient begins to travel Plan History of Present Illness The patient is a 74-year-old male presenting for follow-up regarding degenerative disc disease management and shoulder pain. The degenerative disc disease was identified via MRI several years prior, causing lumbar pain with referred pain to the hamstrings. After undergoing a physical therapy program with significant benefit, he had alleviation of his symptoms. The program involved regular sessions at [facility], paired with home exercises and the use of a lumbar traction device. Though initially skeptical, he observed noticeable improvement due to the therapy. Recently, a fall on ice has resulted in persistent shoulder pain, which he does not suspect involves any serious injuries. . He briefly used gabapentin but stopped due to ineffectiveness. He maintains regular dermatological checks post-melanoma treatment and undergoes PSA level monitoring given his urologic medical history. He continues to be proactive about his health and anticipates future travel. 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 - Preparing for leisure travel to [place] with spouse - Actively maintains his health and wellness Review of Systems - Musculoskeletal: Reports shoulder pain - Neurological: Denies recent changes in neurological status - Gastrointestinal: Denies gastrointestinal discomfort or abnormalities Physical Exam General: Cooperative and healthy appearing Nutritional Appearance: Well nourished Orientation/consciousness: Patient oriented x3 Limitations: No limitations Head: Normal to inspection General: Appearance normal, both eyes and all related structures Neck: Normal visual inspection Chest: Normal palpation of entire chest wall Respiratory: Normal respiratory effort Neurology: Patient oriented x3 Results - Labs: PSA monitoring ongoing with recent results reported as stable. - Previous Imaging: MRI revealed degenerative disc disease (specific timeline not provided). Plan Management of degenerative disc disease remains in place with an emphasis on maintaining therapeutic exercises and usage of home equipment as advised. The patient plans to resume yoga with care, acknowledging the importance of gradual physical reconditioning. Current pain does not require medication alterations due to previously documented ineffectiveness of gabapentin. For shoulder monitoring, should symptoms persist or worsen, further investigation could be warranted. Ongoing protocols are in place for melanoma surveillance and PSA monitoring, reflective of proactive healthcare management. Blood work will be completed shortly to assess current health parameters. I confirmed arrangements for pharmacotherapy specific to travel needs and planned a comprehensive follow- up in six months. Patient was informed and verbally consented to the use of an ambient scribe for clinic note documentation during this visit. Discussion Notes Discussion with the patient covered his current progress with degenerative disc disease and post-therapy status. We reviewed his recent fall and subsequent shoulder pain, with no immediate changes to his current pain management plan advised. I conveyed the importance of controlled activity resumption. We also contemplated his melanoma history, affirming the value of routine dermatological follow-up. Proactive urological checks were reaffirmed given the importance of tracking PSA levels, with no current indication for intervention. I documented his request for lorazepam ahead of travel, aligning with his chronic course. Strategic follow-up planning includes further diagnostic lab testing and a subsequent scheduled review in six months. The patient consented to our outlined plan. Patient Instructions - Continue home exercises for back maintenance and use the lumbar traction device as discussed. - Gradually reintroduce yoga and physical activities, monitoring for discomfort. - Report any increase in shoulder pain or if new neurological symptoms develop. - Adhere to scheduled dermatological and urologic follow-ups. - Arrange blood work at [facility] as discussed. - Contact me before January to arrange travel medication. - Follow up in six months for a routine physical exam.
[2024-11-27 11:15] VITALS: BP 142/82; PULSE 56; TEMP 36.4; O2SAT 98; BMI 28.4
== END 2024-11-27 11:32 | disposition home or self-care (01) ==
LOC: HO.HMCSH 11:01
PROVIDERS: PCP Internal Medicine; Visit Provider Internal Medicine
DX: M47.816 Spondylosis without myelopathy or radiculopathy, lumbar region (principal); N40.0 Benign prostatic hyperplasia without lower urinary tract symptoms; I10 Essential (primary) hypertension; F41.1 Generalized anxiety disorder

== ENCOUNTER → 2024-11-27 11:01 | Outpatient (BNVA) | payer MEDICARE, SELFPAY | PROVIDERS: PCP Internal Medicine; Visit Provider Internal Medicine | DX: M47.816 Spondylosis without myelopathy or radiculopathy, lumbar region (principal); N40.0 Benign prostatic hyperplasia without lower urinary tract symptoms; F41.1 Generalized anxiety disorder; I10 Essential (primary) hypertension | CPT/HCPCS: 99202 ==

== ENCOUNTER 2025-01-14 10:11 | Outpatient (AMB) | payer MEDICARE, SELFPAY ==
[2025-01-14 10:16] VITALS: BP 152/90; PULSE 58; RESP 16; TEMP 36.6; O2SAT 98; BMI 27.9
--- NOTE | 2025-01-14 10:16 | MHC.PC.OV ---
Vital Signs 01/14/25 10:16 Height 5 ft 11 in Weight 200 lb BMI 27.9 BP 152/90 H Respiration 16 Pulse 58 Pulse Source Pulse Oximeter Temp 97.8 F Temp Source Temporal Artery Scan Pulse Oximetry (%) 98 Oxygen Delivery Method Room Air Intake Visit Reasons: right shoulder pain s/p fall Software Test Analyst Required: No Accompanied by: Self / Same As Patient Allergies No Known Allergies [No Known Allergies*] Allergy (Verified 01/14/25 12:16) Medication List - Last Reconciled 01/14/25 by Norma Hernandez PA-C cyclobenzaprine 10 mg PO Q8H escitalopram oxalate 10 mg PO DAILY hydrochlorothiazide 25 mg PO QAM lisinopril 40 mg PO DAILY lorazepam 1 mg PO BID PRN multivitamin 1 tab PO DAILY sildenafil 50 mg PO DAILY PRN simvastatin 20 mg PO DAILY Tobacco use date assessed: 01/14/25 Fall risk assessment: 1 Fall in past year Last assessed Fall Risk: 01/14/25 Dental Screening Dental Screen Date: 01/14/25 Did you have a dental visit in the last 12 months?: Yes Did you have a dental problem in the last 6 months where you did not have access to dental care?: No Was dental information given to patient?: Patient has dentist HPI right shoulder pain s/p fall HPI Details The patient is a 74-year-old male presenting with persistent right shoulder pain following a fall. Approximately ten weeks ago, he slipped on ice, resulting in landing heavily on his right arm, specifically affecting the right shoulder. The patient describes the pain as a throbbing ache, rather than sharp, especially bothersome at night due to his sleeping position, leading to objective difficulties in sustained rest. Despite some improvement, the pain persists, and he is considering options like a cortisone injection for relief. There has been no previous imaging to evaluate the injury, and he engages actively in daily functions without significant exacerbation of the pain. He denies symptoms of numbness, weakness, or neck and chest pain, indicating the localized nature of the injury. 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 - Actively practices hot yoga, indicating engagement in regular physical activity. - Discussed plans for future travel and reliance on lorazepam for anxiety related to flying. [facility] Medical History (Updated 01/14/25 @ 12:20 by Norma Hernandez PA-C) Anxiety with flying Fall Right shoulder injury Generalized anxiety disorder Essential hypertension Benign prostate hyperplasia Degenerative joint disease (DJD) of lumbar spine Surgical History History of colonoscopy (~11/05/19) Hx of hernia repair History of melanoma Family History Mother Lung cancer Social History Household Members: Family Housing: House Alcohol intake: current Alcohol intake frequency: holidays/special occasions only Patient Tobacco Use Status: Never used Tobacco Substance Use Type: Marijuana service: No Current occupational status: retired Cognitive needs: No Hearing needs: No Vision needs: Yes (reading glasses) Questionnaire PHQ-9 Over the last 2 weeks, how often have you been bothered by any of the following problems? 1. Little interest or pleasure in doing things: not at all 2. Feeling down, depressed, or hopeless: not at all 3. Trouble falling or staying asleep, or sleeping too much: not at all 4. Feeling tired or having little energy: not at all 5. Poor appetite or overeating: not at all 6. Feeling bad about yourself - or that you are a failure or have let yourself or your family down: not at all 7. Trouble concentrating on things, such as reading the newspaper or watching television: not at all 8. Moving or speaking so slowly that other people could have noticed. Or the opposite - being so fidgety or restless that you have been moving around a lot more than usual: not at all 9. Thoughts that you would be better off or of hurting yourself in some way: not at all Total score: 0 Depression Screening Interpretation: Negative Depression Screening Done: Yes 29058 - PHQ-9 Billing: Yes Source: Developed by Drs. Rashi Lindsey, Tessie Sheehan, Johnnie Rosales and colleagues, with an educational bobby from [employer]. Thrive Questionnaire Date Thrive assessed: 01/14/25 I am a: Patient What is your living situation today?: I have a steady place to live Within the past 12 months, did the food you bought not last and you didn't have the money to get more?: Never true Within the past 12 months, did you worry whether your food would run out before you got money to buy more?: Never true Do you have trouble paying for medicines?: No Do you have trouble getting transportation to medical appointments?: No Do you have trouble paying your heating and electricity bill?: No Do you have trouble taking care of your child, family member or friend?: No Do you have trouble with day-to-day activities such as bathing, preparing meals, shopping, managing finances, etc.?: No Are you currently unemployed and looking for a job?: No Are you interested in more education?: No Please select the resources that you would like help with: None THRIVE Score: 0 AUDIT C Alcohol Use Questionnaire (AUDIT-C) 1. How often do you have a drink containing alcohol?: Monthly or less 2. How many drinks containing alcohol do you have on a typical day when you are drinking?: 1 or 2 3. How often do you have six or more drinks on one occasion?: Never Total Score: 1 Score Reviewed/Action Taken: No JANICE-7 AMB Questionnaire JANICE-7 Date JANICE - 7 assessed: 01/14/25 Feeling nervous, anxious, or on edge: 0 = Not at all Not being able to stop or control worryin = Not at all Worrying too much about different things: 0 = Not at all Trouble relaxin = Not at all Being so restless that it is hard to sit still: 0 = Not at all Becoming easily annoyed or irritable: 0 = Not at all Feeling afraid as if something awful might happen: 0 = Not at all Total JANICE-7 score (0-4 normal; 5-9 mild; 10-14 moderate; 15-21 severe): 0 Source: Developed by Drs. Rashi Lindsey, Tessie Sheehan, Johnnie Rosales and colleagues, with an educational bobby from [employer]. JANICE-7 Assessment Billing JANICE-7 Assessment Tool: JANICE-7 Assessment 87882 Review of Systems Const Details: - Musculoskeletal: Reports aching and throbbing pain in the right shoulder. - Neurological: Denies any neck pain, numbness, or weakness. - Cardiovascular: Denies chest pain. Physical exam (Primary Care) Vital Signs: Last Vital Signs Temp 97.8 F 01/14/25 10:16 Pulse 58 01/14/25 10:16 Resp 16 01/14/25 10:16 BP 152/90 H 01/14/25 10:16 Pulse Ox 98 01/14/25 10:16 Oxygen Delivery Method Room Air 01/14/25 10:16 BMI result Body Mass Index 27.9 BMI Assessment/Plan discussion: High BMI High, discussed plan: lifestyle, weight reduction, dietary, physical activity and alcohol moderation Tobacco/Smoking Status: Tobacco use Status Tobacco use date assessed 01/14/25 01/14/25 10:21 Patient Tobacco Use Status Never used Tobacco 01/14/25 10:21 PHQ-9: PHQ-9 Score PHQ-9: Total score 0 01/14/25 10:21 Depression Screening Interpretation: Negative Thrive Assessment: Date of Thrive Assessment Date Thrive assessed 01/14/25 01/14/25 10:21 Const Other: Appearance: Alert. Oriented X3. No acute distress. Head: Normal external exam. Normocephalic. Atraumatic. Eyes: Pupils are equal, round, and reactive to light. Extraocular movements intact. Conjunctiva and sclera normal. Eyelids normal. Throat: Pharynx normal. Uvula midline. Moist mucous membranes. Neck: Normal inspection. Neck supple. Full range of motion. Cardiovascular: Normal heart rate and rhythm. Respiratory: No respiratory distress. Painless inspiration. Back: Full range of motion noted. Skin: Skin warm and dry. Normal skin color. Normal skin turgor. No rashes/lesions/lacerations noted. Extremities: Right shoulder exhibits some aching and throbbing pain, especially at night. No sharp pain noted. Able to perform movements but with some discomfort. Patient does have good range of motion. Mild tenderness to the AC joint with some range of motion. No obvious deformities. No signs of infection. No extremity edema noted. Normal pulses. No cyanosis. Normal capillary refill. No joint effusion is noted. Otherwise all other extremities exhibit normal range of motion nontender. Neuro: Oriented X 3. No motor deficit. No sensory deficit. Reflexes normal. No neck pain, numbness, or weakness. No chest pain. Coding Level of Care Code Est Pt Level 3 (70238) Diagnoses Right shoulder injury S49.91XA Fall W19.XXXA Anxiety with flying F40.243 Additional Codes PHQ-9 - 71521 - PHQ-9 Billing: Yes ([id number]) JANICE-7 Assessment Billing - JANICE-7 Assessment Tool: JANICE-7 Assessment 88093 ([id number]) Assessment & Plan Assessment & Plan (1) Right shoulder injury: Code(s): S49.91XA - Unspecified injury of right shoulder and upper arm, initial encounter Category: Medical Plan: The plan includes obtaining an X-ray to assess the condition of the shoulder post-fall. An MRI was ordered pending insurance approval. A muscle relaxant was prescribed for symptom management at night. Referral to orthopedics for potential interventions like a cortisone injection was planned. Condition is chronic and stable continue to monitor. (2) Fall: Code(s): W19.XXXA - Unspecified fall, initial encounter Category: Medical Plan: No additional treatment required beyond monitoring symptoms associated with the fall, limited to issues with the right shoulder. Condition is chronic and stable continue to monitor. (3) Anxiety with flying: Code(s): F40.243 - Fear of flying Category: Medical Plan: Lorazepam was prescribed to manage flight-related anxiety, consistent with previous treatments. Patient was advised on safety measures regarding sedative use. Condition is chronic and stable continue to monitor. Plan Plan Patient was informed and verbally consented to the use of an ambient scribe for clinic note documentation during this visit. 1. Right Shoulder Pain The plan includes obtaining an X-ray to assess the condition of the shoulder post-fall. A muscle relaxant was prescribed for symptom management at night. Referral to orthopedics for potential interventions like a cortisone injection was planned. MRI ordered pending insurance approval. 2. Fall Injury No additional treatment required beyond monitoring symptoms associated with the fall, limited to issues with the right shoulder. 3. Use Of Lorazepam Lorazepam was prescribed to manage flight-related anxiety, consistent with previous treatments. Patient was advised on safety measures regarding sedative use. During the consultation, I discussed with the patient the probable musculoskeletal nature of the shoulder pain following the fall. I explained the necessity of an X-ray to explore any structural damage and set this as the initial diagnostic step. An orthopedic consultation was planned for further management, particularly focusing on discussing the benefits and risks of a cortisone injection. Additionally, we revisited the use of lorazepam for flight anxiety, ultimately confirming a brief prescription to assist in traveling, given the patient's historical use without complications. The importance of following safety advice regarding the use of muscle relaxants and lorazepam was emphasized, with an agreement to communicate promptly about any concerns after initiating these medications. I also reinforced that further follow-up would be determined based on X-ray results and the specialist?s advice, and our discussion concluded with aligning future visits for ongoing monitoring and care. Orders: Orders MR shoulder RT wo con Today S49.91XA - Unspecified injury of right shoulder and upper arm, initial encounter, W19.XXXA - Unspecified fall, initial encounter XR shoulder RT min 2V Today S49.91XA - Unspecified injury of right shoulder and upper arm, initial encounter Referrals Orthopedics Referral S49.91XA - Unspecified injury of right shoulder and upper arm, initial encounter, W19.XXXA - Unspecified fall, initial encounter Medications: New cyclobenzaprine 10 mg PO Q8H 30 tabs 1RF lorazepam 1 mg PO BID PRN 14 tabs 0RF anxiety Patient Instructions: - Get an X-ray of the right shoulder as soon as possible. - Take prescribed muscle relaxant for shoulder pain at night, avoiding alcohol and driving. - Follow up with orthopedics for potential cortisone injections. - Use lorazepam as prescribed for travel anxiety, but do not drive while under its influence. - Report any new symptoms or concerns promptly.
== END 2025-01-14 11:22 | disposition home or self-care (01) ==
LOC: HO.HMCSH 10:11
PROVIDERS: PCP Internal Medicine; Visit Provider Physician Assistant Medical
DX: S49.91XA Unspecified injury of right shoulder and upper arm, initial encounter (principal); W19.XXXA Unspecified fall, initial encounter; F40.243 Fear of flying

== ENCOUNTER 2025-01-14 10:11 | Outpatient (REF) | payer MEDICARE, SELFPAY ==
--- NOTE | ~2025-01-14 | XR_ITS ---
CLINICAL HISTORY: S49.91XA - Unspecified injury of right shoulder and upper arm, initial e... 5 view right shoulder Comparison: None Findings: Bones intact. No dislocations. Moderate degenerative change of the acromioclavicular and glenohumeral joints. No erosions. No radiopaque foreign body. IMPRESSION: 1. No acute findings 2. Moderate degenerative changes. This document has been electronically signed by: Dominic Calderón MD on 01/14/2025 12:02:04
== END 2025-01-14 10:12 | disposition home or self-care (01) ==
LOC: HO.XRAY 10:11
PROVIDERS: PCP Internal Medicine; Visit Provider Physician Assistant Medical
DX: S49.91XA Unspecified injury of right shoulder and upper arm, initial encounter (principal); F40.243 Fear of flying; W00.0XXA Fall on same level due to ice and snow, initial encounter; Y93.9 Activity, unspecified; Y92.9 Unspecified place or not applicable; Y99.9 Unspecified external cause status
CPT/HCPCS: 73030; 96127; 99212

== ENCOUNTER → 2025-01-14 11:39 | Outpatient (BNV) | payer MEDICARE, SELFPAY | PROVIDERS: PCP Internal Medicine; Visit Provider Radiology Vascular & Interventional Radiology | DX: S49.91XA Unspecified injury of right shoulder and upper arm, initial encounter (principal); M19.011 Primary osteoarthritis, right shoulder | CPT/HCPCS: 73030 ==

== ENCOUNTER 2025-01-16 19:29 | Outpatient (REF) | payer MEDICARE, SELFPAY | END 2025-01-16 19:30 | disposition home or self-care (01) | LOC: HO.MRI 19:29 | PROVIDERS: PCP Internal Medicine; Visit Provider Physician Assistant Medical | DX: S49.91XA Unspecified injury of right shoulder and upper arm, initial encounter (principal); W19.XXXA Unspecified fall, initial encounter | CPT/HCPCS: 73221 ==

== ENCOUNTER → 2025-01-16 19:34 | Outpatient (BNV) | payer MEDICARE, SELFPAY | PROVIDERS: PCP Internal Medicine; Visit Provider Radiology Diagnostic Radiology | DX: M75.31 Calcific tendinitis of right shoulder (principal); M65.821 Other synovitis and tenosynovitis, right upper arm; M19.011 Primary osteoarthritis, right shoulder | CPT/HCPCS: 73221 ==

== ENCOUNTER 2025-03-26 11:19 | Outpatient (AMB) | payer MEDICARE, SELFPAY ==
--- NOTE | 2025-03-26 11:50 | MHC.PC.OV ---
Vital Signs 03/26/25 11:54 Height 5 ft 10.75 in Weight 198 lb 0.8 oz BMI 27.8 BP 138/70 Blood Pressure Location Lt brachial Pulse 91 Pulse Source Pulse Oximeter Temp 97.4 F Pulse Oximetry (%) 91 L Intake Visit Reasons: Diverticulitis Recruitment Intern Required: No Accompanied by: Self / Same As Patient Allergies No Known Allergies (No Known Allergies*) Allergy (Verified 03/26/25 12:01) Medication List - Last Reconciled 03/26/25 by Norma Hernandez PA-C escitalopram oxalate 10 mg PO DAILY hydrochlorothiazide 25 mg PO QAM lisinopril 40 mg PO DAILY lorazepam 1 mg PO BID PRN multivitamin 1 tab PO DAILY sildenafil 50 mg PO DAILY PRN simvastatin 20 mg PO DAILY Tobacco use date assessed: 01/14/25 Fall risk assessment: 1 Fall in past year Last assessed Fall Risk: 01/14/25 Dental Screening Dental Screen Date: 01/14/25 Did you have a dental visit in the last 12 months?: Yes Did you have a dental problem in the last 6 months where you did not have access to dental care?: No Was dental information given to patient?: Patient has dentist HPI Diverticulitis HPI Details The patient is a 74-year-old male presenting with abdominal pain. The patient has a history of diverticulitis, with a previous episode requiring emergency care and a CT scan. Antibiotic treatment was administered, possibly Augmentin, though details are uncertain. Recently, the patient experienced mild right lower quadrant pain for several days, without other symptoms like diarrhea or fever. The pain has improved, and the patient is currently asymptomatic. The patient avoids foods that may trigger diverticulitis and has ceased coffee consumption, which may have alleviated symptoms. Social History - Diet: Avoids foods that may exacerbate diverticulitis, such as seeds and corn. - Lifestyle: Stopped drinking coffee, which may have contributed to symptom improvement. 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 Fall Right shoulder injury Generalized anxiety disorder Essential hypertension Benign prostate hyperplasia Degenerative joint disease (DJD) of lumbar spine Surgical History History of colonoscopy (~11/05/19) Hx of hernia repair History of melanoma Family History Mother Lung cancer Social History Household Members: Family Housing: House Alcohol intake: current Alcohol intake frequency: holidays/special occasions only Patient Tobacco Use Status: Never used Tobacco e-Cigarette/Vaping Use: Never Used Substance Use Type: Marijuana service: No Current occupational status: retired Cognitive needs: No Hearing needs: No Vision needs: Yes (reading glasses) Questionnaire PHQ-9 Over the last 2 weeks, how often have you been bothered by any of the following problems? 1. Little interest or pleasure in doing things: not at all 2. Feeling down, depressed, or hopeless: not at all 3. Trouble falling or staying asleep, or sleeping too much: not at all 4. Feeling tired or having little energy: not at all 5. Poor appetite or overeating: not at all 6. Feeling bad about yourself - or that you are a failure or have let yourself or your family down: not at all 7. Trouble concentrating on things, such as reading the newspaper or watching television: not at all 8. Moving or speaking so slowly that other people could have noticed. Or the opposite - being so fidgety or restless that you have been moving around a lot more than usual: not at all 9. Thoughts that you would be better off or of hurting yourself in some way: not at all Total score: 0 Depression Screening Interpretation: Negative Depression Screening Done: Yes 43161 - PHQ-9 Billing: Yes Source: Developed by Drs. Rashi Lindsey, Tessie Sheehan, Johnnie Rosales and colleagues, with an educational bobby from [employer]. Thrive Questionnaire Date Thrive assessed: 01/14/25 I am a: Patient What is your living situation today?: I have a steady place to live Within the past 12 months, did the food you bought not last and you didn't have the money to get more?: Never true Within the past 12 months, did you worry whether your food would run out before you got money to buy more?: Never true Do you have trouble paying for medicines?: No Do you have trouble getting transportation to medical appointments?: No Do you have trouble paying your heating and electricity bill?: No Do you have trouble taking care of your child, family member or friend?: No Do you have trouble with day-to-day activities such as bathing, preparing meals, shopping, managing finances, etc.?: No Are you currently unemployed and looking for a job?: No Are you interested in more education?: No Please select the resources that you would like help with: None THRIVE Score: 0 AUDIT C Alcohol Use Questionnaire (AUDIT-C) 1. How often do you have a drink containing alcohol?: Monthly or less 2. How many drinks containing alcohol do you have on a typical day when you are drinking?: 1 or 2 3. How often do you have six or more drinks on one occasion?: Never Total Score: 1 Score Reviewed/Action Taken: No JANICE-7 AMB Questionnaire JANICE-7 Date JANICE - 7 assessed: 01/14/25 Source: Developed by Drs. Rashi Lindsey, Tessie Sheehan, Johnnie Rosales and colleagues, with an educational bobby from [employer]. Review of Systems Const Details: - Gastrointestinal: Reports mild right lower quadrant abdominal pain for 3-4 days; denies diarrhea, constipation, or bloody stools. - Genitourinary: Denies dysuria. All systems reviewed & are unremarkable except as noted in HPI and below Physical exam (Primary Care) Vital Signs: Last Vital Signs Temp 97.4 F 03/26/25 11:54 Pulse 91 03/26/25 11:54 BP 138/70 03/26/25 11:54 Pulse Ox 91 L 03/26/25 11:54 Care Plan Goal for BP management: <140/90 at Goal BMI result Body Mass Index 27.8 Tobacco/Smoking Status: Tobacco use Status Tobacco use date assessed 01/14/25 03/26/25 11:58 Patient Tobacco Use Status Never used Tobacco 03/26/25 11:58 e-Cigarette/Vaping Use Never Used 03/26/25 11:58 PHQ-9: PHQ-9 Score PHQ-9: Total score 0 03/26/25 11:58 Depression Screening Interpretation: Negative Thrive Assessment: Date of Thrive Assessment Date Thrive assessed 01/14/25 03/26/25 11:58 Const Other: Appearance: Alert. Oriented X3. No acute distress. Head: Normal external exam. Normocephalic. Atraumatic. Eyes: Pupils are equal, round, and reactive to light. Extraocular movements intact. Conjunctiva and sclera normal. Eyelids normal. Ears: External auditory canal normal. Tympanic membranes normal. Throat: Pharynx normal. Uvula midline. Moist mucous membranes. Neck: Normal inspection. Neck supple. Full range of motion. No adenopathy. Thyroid Normal. No meningeal signs. No neck mass noted. Cardiovascular: Normal heart rate and rhythm. Heart sound normal. No murmurs noted. Pulses normal throughout. Respiratory: No respiratory distress. Painless inspiration. Breath sounds normal. No wheezes/rales/rhonchi noted. Chest nontender. No accessory muscle usage noted or decreased air movement noted. Abdomen: Soft and RLQ. No rebound tenderness. Negative Rovsing sign. Negative obturator sign. Negative psoas sign. Negative Tobar's sign. Bowel sounds normal in all 4 quadrants. No distention noted. No organomegaly noted. No visible injury noted. Back: No costovertebral angle tenderness. Full range of motion noted. Skin: Skin warm and dry. Normal skin color. Normal skin turgor. No rashes/lesions/lacerations noted. Extremities: No lower extremity edema. Extremities exhibit normal range of motion. Extremities nontender. Neuro: Oriented X 3. No motor deficit. No sensory deficit. Reflexes normal. Results Reviewed Results Reviewed: - Imaging: Previous [facility] scan performed at [facility] during past diverticulitis episode. Coding Level of Care Code Est Pt Level 5 (83836) Complex EM visit Add On G2211 Diagnoses Right lower quadrant abdominal pain R10.31 Additional Codes PHQ-9 - 14586 - PHQ-9 Billing: Yes ([id number]) Assessment & Plan Assessment & Plan (1) Right lower quadrant abdominal pain: Code(s): R10.31 - Right lower quadrant pain Category: Medical Plan: The patient presenting with right lower quadrant abdominal tenderness. Denies any other symptoms. Not consistent with acute abdomen. Only mild tenderness to the right lower quadrant no rebound tenderness. Negative Rovsing sign. Negative obturator sign. Negative psoas sign. Negative Tobar's sign. Concerned for diverticulitis versus appendicitis. Instructed patient to start Augmentin 875 mg b.i.d. although if symptoms persist or worsen then he will need to go to the emergency department immediately for labs and CT scan abdomen pelvis with IV contrast. Patient understands agrees with this plan. Plan Plan Patient was informed and verbally consented to the use of an ambient scribe for clinic note documentation during this visit. 1. Diverticulitis The patient will be started on Augmentin for 10 days, with instructions to monitor for worsening symptoms such as fever or increased pain, which would necessitate an ER visit. Dietary modifications include following a BRAT diet and avoiding foods that could exacerbate diverticulitis. 2. Appendicitis The patient is advised to seek immediate medical attention if symptoms worsen or if fever develops, as this could indicate appendicitis. The patient is informed about the potential for appendicitis given the right lower quadrant tenderness and is advised to monitor symptoms closely. I discussed with the patient the possibility of diverticulitis and appendicitis, given the symptoms and physical exam findings. We agreed to start Augmentin for 10 days, with dietary modifications to follow a BRAT diet. I emphasized the importance of monitoring symptoms closely and seeking immediate medical attention if symptoms worsen or if fever develops, as this could indicate appendicitis. The patient was informed about the potential risks of appendicitis and the need for prompt evaluation if symptoms persist or worsen. Medications: Changed From amoxicillin-pot clavulanate 875-125 mg 1 tab PO TID 21 tabs 0RF 7 days To amoxicillin-pot clavulanate 875-125 mg 1 tab PO BID 20 tabs 0RF 10 days Patient Instructions: - Take Augmentin as prescribed for 10 days. - Follow a BRAT diet: bananas, rice, applesauce, toast. - Avoid foods that could worsen diverticulitis, such as seeds and corn. - Monitor for worsening symptoms, such as fever or increased pain, and seek immediate medical attention if they occur.
[2025-03-26 11:54] VITALS: BP 138/70; PULSE 91; TEMP 36.3; O2SAT 91; BMI 27.8
== END 2025-03-26 12:10 | disposition home or self-care (01) ==
LOC: HO.HMCSH 11:19
PROVIDERS: PCP Internal Medicine; Visit Provider Physician Assistant Medical
DX: R10.31 Right lower quadrant pain (principal)

== ENCOUNTER → 2025-03-26 11:19 | Outpatient (BNVA) | payer MEDICARE, SELFPAY | PROVIDERS: PCP Internal Medicine; Visit Provider Physician Assistant Medical | DX: R10.31 Right lower quadrant pain (principal) | CPT/HCPCS: 96127; 99212 ==

== ENCOUNTER 2025-05-20 11:41 | Outpatient (AMB) | payer MEDICARE, SELFPAY ==
[2025-05-20 11:41] VITALS: BP 152/90; PULSE 70; RESP 18; TEMP 36.7; O2SAT 99; BMI 27.9
--- NOTE | 2025-05-20 11:41 | MHC.PC.OV ---
Vital Signs 05/20/25 11:41 Height 5 ft 11 in Weight 200 lb BMI 27.9 BP 152/90 H Respiration 18 Pulse 70 Pulse Source Pulse Oximeter Temp 98.0 F Temp Source Temporal Artery Scan Pulse Oximetry (%) 99 Oxygen Delivery Method Room Air Intake Visit Reasons: back pain Application Support Consultant Required: No Accompanied by: Self / Same As Patient Allergies No Known Allergies (No Known Allergies*) Allergy (Verified 05/20/25 11:42) Tobacco use date assessed: 05/20/25 Dental Screening Dental Screen Date: 01/14/25 [facility] Medical History Right lower quadrant abdominal pain DJD of right shoulder Bicipital tenosynovitis Subdeltoid bursitis of right shoulder joint 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 Fall Right shoulder injury Generalized anxiety disorder Essential hypertension Benign prostate hyperplasia Degenerative joint disease (DJD) of lumbar spine Surgical History History of colonoscopy (~11/05/19) Hx of hernia repair History of melanoma Family History Mother Lung cancer Social History Household Members: Family Housing: House Alcohol intake: current Alcohol intake frequency: holidays/special occasions only Patient Tobacco Use Status: Never used Tobacco e-Cigarette/Vaping Use: Never Used Substance Use Type: Marijuana service: No Current occupational status: retired Cognitive needs: No Hearing needs: No Vision needs: Yes (reading glasses) Questionnaire PHQ-9 Over the last 2 weeks, how often have you been bothered by any of the following problems? 1. Little interest or pleasure in doing things: not at all 2. Feeling down, depressed, or hopeless: not at all 3. Trouble falling or staying asleep, or sleeping too much: not at all 4. Feeling tired or having little energy: not at all 5. Poor appetite or overeating: not at all 6. Feeling bad about yourself - or that you are a failure or have let yourself or your family down: not at all 7. Trouble concentrating on things, such as reading the newspaper or watching television: not at all 8. Moving or speaking so slowly that other people could have noticed. Or the opposite - being so fidgety or restless that you have been moving around a lot more than usual: not at all 9. Thoughts that you would be better off or of hurting yourself in some way: not at all Total score: 0 Depression Screening Interpretation: Negative Depression Screening Done: Yes 75576 - PHQ-9 Billing: Yes Source: Developed by Drs. Rashi Lindsey, Tessie Sheehan, Johnnie Rosales and colleagues, with an educational bobby from [employer]. Thrive Questionnaire Date Thrive assessed: 03/26/25 I am a: Patient What is your living situation today?: I have a steady place to live Within the past 12 months, did the food you bought not last and you didn't have the money to get more?: Never true Within the past 12 months, did you worry whether your food would run out before you got money to buy more?: Never true Do you have trouble paying for medicines?: No Do you have trouble getting transportation to medical appointments?: No Do you have trouble paying your heating and electricity bill?: No Do you have trouble taking care of your child, family member or friend?: No Do you have trouble with day-to-day activities such as bathing, preparing meals, shopping, managing finances, etc.?: No Are you currently unemployed and looking for a job?: No Are you interested in more education?: No Please select the resources that you would like help with: None THRIVE Score: 0 AUDIT C Alcohol Use Questionnaire (AUDIT-C) 1. How often do you have a drink containing alcohol?: Monthly or less 2. How many drinks containing alcohol do you have on a typical day when you are drinking?: 1 or 2 3. How often do you have six or more drinks on one occasion?: Never Total Score: 1 Score Reviewed/Action Taken: No JANICE-7 AMB Questionnaire JANICE-7 Date JANICE - 7 assessed: 01/14/25 Feeling nervous, anxious, or on edge: 0 = Not at all Not being able to stop or control worryin = Not at all Worrying too much about different things: 0 = Not at all Trouble relaxin = Not at all Being so restless that it is hard to sit still: 0 = Not at all Becoming easily annoyed or irritable: 0 = Not at all Feeling afraid as if something awful might happen: 0 = Not at all Total JANICE-7 score (0-4 normal; 5-9 mild; 10-14 moderate; 15-21 severe): 0 Source: Developed by Drs. Rashi Lindsey, Tessie Sheehan, Johnnie Rosales and colleagues, with an educational bobby from [employer]. JANICE-7 Assessment Billing JANICE-7 Assessment Tool: JANICE-7 Assessment 22533 Physical exam (Primary Care) Vital Signs: Last Vital Signs Temp 98.0 F 05/20/25 11:41 Pulse 70 05/20/25 11:41 Resp 18 05/20/25 11:41 BP 152/90 H 05/20/25 11:41 Pulse Ox 99 05/20/25 11:41 Oxygen Delivery Method Room Air 05/20/25 11:41 BMI result Body Mass Index 27.9 Tobacco/Smoking Status: Tobacco use Status Tobacco use date assessed 05/20/25 05/20/25 11:48 Patient Tobacco Use Status Never used Tobacco 05/20/25 11:48 e-Cigarette/Vaping Use Never Used 05/20/25 11:48 PHQ-9: PHQ-9 Score PHQ-9: Total score 0 05/20/25 11:48 Depression Screening Interpretation: Negative Thrive Assessment: Date of Thrive Assessment Date Thrive assessed 03/26/25 05/20/25 11:48 Coding Level of Care Code Est Pt Level 4 (05273) Complex EM visit Add On G2211 Diagnoses Degenerative joint disease (DJD) of lumbar spine M47.816 Additional Codes JANICE-7 Assessment Billing - JANICE-7 Assessment Tool: JANICE-7 Assessment 70760 ([id number]) PHQ-9 - 17952 - PHQ-9 Billing: Yes ([id number]) Assessment & Plan Assessment & Plan (1) Degenerative joint disease (DJD) of lumbar spine: Code(s): M47.816 - Spondylosis without myelopathy or radiculopathy, lumbar region Category: Medical Plan: History of Present Illness - The patient is a 74-year-old male presenting with worsening lower back pain and hamstring discomfort. - The lower back pain and hamstring discomfort began in September 2021, following an MRI that diagnosed degenerative disc disease. - The pain oscillates between the lower back and hamstrings, sometimes affecting both areas simultaneously, and has worsened over the last two months. - The patient has tried physical therapy and a lumbar traction device at home without significant relief. - The patient remains active, participating in yoga and Pilates, which provides temporary relief. - Consultation with Dr. Michaels, an orthopedic surgeon, led to recommendations for physical therapy and other measures, which were not helpful. Social History - The patient has been active, engaging in yoga and Pilates, which provides temporary relief from symptoms. Review of Systems - Musculoskeletal: Reports worsening lower back pain and hamstring discomfort, oscillating between the two areas. Physical Exam General: Cooperative and healthy appearing Nutritional Appearance: Well nourished Orientation/consciousness: Patient oriented x3 Limitations: No limitations Head: Normal to inspection General: Appearance normal, both eyes and all related structures Neck: Normal visual inspection Chest: Normal palpation of entire chest wall Respiratory: N ormal respiratory effort Neurology: Patient oriented x3, reports persistent lower back and hamstring pain, worsened over the last two months. Results - Imaging: MRI of the lumbar spine in September 2021 showed degenerative disc disease. Plan 1. Degenerative Disc Disease - Referral to Dr. Hardin, a spinal surgeon, for evaluation of potential microdiscectomy. - Consideration of a new MRI if deemed necessary by Dr. Hardin. - Discussion of potential epidural steroid injections for pain management if surgery is not indicated. 2. Lumbar Spinal Stenosis - Evaluation by Dr. Hardin to determine the need for surgical intervention. - Consideration of pain management options, including epidural steroid injections, if surgery is not pursued. Discussion Notes I discussed with the patient the diagnosis of degenerative disc disease and lumbar spinal stenosis. We reviewed the potential for a microdiscectomy with Dr. Hardin, a spinal surgeon, and the possibility of obtaining a new MRI if necessary. I also explained the option of epidural steroid injections for pain management if surgery is not indicated. The patient was advised to follow up with Dr. Hardin and to contact me via the portal for further steps based on the surgeon's recommendations. Patient Instructions - Follow up with Dr. Hardin for evaluation of potential microdiscectomy. - Contact the office via the portal after seeing Dr. Hardin to discuss next steps. - Consider pain management options, including epidural steroid injections, if surgery is not pursued. Orders: Referrals Neuro Spine Referral M48.00 - Spinal stenosis, site unspecified
--- OUTSIDE RECORDS SUMMARY | 2025-05-20 13:13 | XMS_ITS | Clinical Summary ---
Author Organization [facility] Address [address] [facility] [address] [place] [phone] Phone Care Team Providers Care Memory Care Program Resident Name Role Phone Roberto Poe MD Primary Care Provid er Allergies No known active allergies Medications escitalopram oxalate (LEXAPRO) 10 MG tablet Take 10 mg by mouth daily. Active hydroCHLOROthia zide 25 MG tablet Take 25 mg by mouth daily. Active lisinopril (PRINIVIL,ZESTR IL) 40 MG tablet Take 40 mg by mouth daily. Active LORazepam (ATIVAN) 1 MG tablet Take 1 mg by mouth every 6 (six) hours as needed. 01/14/2025 Active simvastatin (ZOCOR) 20 MG tablet Take 20 mg by mouth nightly at bedtime. 11/11/2024 Active Encounters Date Type Department Care Team Description 03/22/2025 9:15 AM EDT Office Visit [address] [address] Chivo Layne MD Chau, Stephanie, PT Chronic right shoulder pain (Primary Dx) 03/07/2025 11:15 AM EDT Office Visit [address] [address] Chivo Layne MD Chau, Stephanie, PT Chronic right shoulder pain (Primary Dx) 03/07/2025 Plan of Care Documentation [address] [id number] from Last 3 Months Social History Tobacco Use Types Packs/Day Years Used Date Smoking Tobacco: Never Smokeless Tobacco: Never Tobacco Cessation:Counseling Given: Not Answered Education Answer Date Recorded Are you interested in more education? Not on olivia e 01/21/2023 Are you concerned about learning? Not on file 01/21/2023 No 01/21/2023 No 01/21/2023 Digital Access Answer Date Recorded No 02/19/2023 No 02/19/2023 Reliable internet access at home? Not on file 02/19/2023 Device with a working camera? Not on file Sex and Gender Information Value Date Recorded Sex Assigned at Male 01/20/2025 2:50 PM EDT Legal Sex Male 10:02 PM EDT Gender Identity Male 01/20/2025 2:50 PM EDT Sexual Orientation Choose not to disclose 2024 2:50 PM EDT Last Filed Vital Signs Vital Sign Reading Time Taken Comments Blood Pressure - - Pulse - - Temperature - - Respiratory Rate - - Oxygen Saturation - - Inhaled Oxygen Concentration - - Weight 88.5 kg (195 lb) 01/23/2025 1:11 PM EDT Height 185.4 cm (6' 1 ) 01/23/2025 1:11 PM EDT Body Mass Index 25.73 01/23/2025 1:11 PM EDT Plan of Treatment Health Maintenance Due Date Last Done Comments Adult Td,Tdap Booster 1950 CREATININE LEVEL 1950 LIPID PANEL 1950 POTASSIUM LEVEL 1950 DEPRESSION SCREENING 1962 HEPATITIS C SCREENING 1968 COLOGUARD 1995 COLONOSCOPY 1995 COLORECTAL CANCER SCREENING 1995 FIT TEST 1995 FOBT 1995 SIGMOIDOSCOPY 1995 VIRTUAL COLONOSCOPY 1995 PNEUMOCOCCAL VACCINES (50+ years) (1 of 1 - PCV) 2000 COVID-19 VACCINE ( - 2023- season) 2024 06/15/2024, 06/27/2023, 06/10/2022, Additional history exists RSV VACCINE (1 - 1-dose 75+ series) 2025 ZOSTER VACCINES Completed 05/14/2024, 06/14/2023 SMOKING STATUS SCREENING (Once After 26 Yrs) Completed 01/23/2025 HEPATITIS A VACCINES Aged Out No long er eligible based on patient's age to complete this topic HIB VACCINES Aged Out No longer eligi ble based on patient's age to complete this topic MENINGOCOCCAL VACCINES (ACWY) Aged Out No longer eligible based on patient's age to complete this topic MENINGOCOCCAL VACCINES (B) Aged Out N o longer eligible based on patient's age to complete this topic Medical Devices Not on file Insurance [employer] SUPPLEMENT MEDICARE PART A & B [employer] SUPPLEMENT MEDICARE PART A & B [employer] MEDEX SUPPLEMENT [employer] MEDEX SUPPLEMENT ATHOL Achaogen MEDEX SUPPLEMENT MEDICARE PART A & B [employer] MEDEX SUPPLEMENT [employer] MED[employer] SUPPLEMENT MEDICARE PART A & B [employer] MED[employer] SUPPLEMENT MEDICARE PART A & B [employer] MED[employer] SUPPLEMENT MEDICARE PART A & B Care Teams Memory Care Program Resident Relationship Specialty Start Date End Date Roberto Poe MD [address] [place] [phone] PCP - General Internal Medicine 01/30/25 Additional Source Comments The information contained in this document represents components of the legal health record. It is not the complete legal health record.[facility]
== END 2025-05-20 12:57 | disposition home or self-care (01) ==
LOC: HO.HMCSH 11:41
PROVIDERS: PCP Internal Medicine; Visit Provider Internal Medicine
DX: M47.816 Spondylosis without myelopathy or radiculopathy, lumbar region (principal)

== ENCOUNTER → 2025-05-20 11:41 | Outpatient (BNVA) | payer MEDICARE, SELFPAY | PROVIDERS: PCP Internal Medicine; Visit Provider Internal Medicine | DX: M47.816 Spondylosis without myelopathy or radiculopathy, lumbar region (principal) | CPT/HCPCS: 96127; 99212 ==

== ENCOUNTER 2025-05-31 10:03 | Outpatient (REF) | payer MEDICARE, SELFPAY ==
--- NOTE | ~2025-05-31 | MR_ITS ---
EXAM: MRI Lumbar Spine without Contrast. TECHNIQUE: Multiplanar multisequence MR imaging was performed through the lumbar spine without contrast. INDICATION: M48.00 - Spinal stenosis, site unspecified PRIOR: October 16, 2021 FINDINGS: 5 non-rib bearing lumbar segments are present Marrow and end-plates: Modic 2 signal changes are present L1-2, L2-3, and L4-5 and Modic 1 signal change is present at L5-S1. Alignment: L3-4 demonstrates grade 1 anterolisthesis, and L1-2 and L4-5 demonstrate subtle retrolisthesis. Soft tissues: Again noted is a large simple renal cysts involving the right kidney that is incompletely imaged but previously characterized on CT abdomen October 17, 2023. Conus: The termination of conus medullaris is within normal limits at the level of T12. T12-L1: Unremarkable L1-L2: There is severe disc space narrowing with endplate osteophytes and circumferential broad-based disc bulge not resulting in spinal stenosis or foraminal narrowing. L2-L3: There is moderate to severe disc space narrowing and circumferential broad-based disc bulge with osteophytes resulting in [id number] spinal stenosis and subarticular zone narrowing, greater on the left, slightly increased from the prior. There is mild left foraminal narrowing without right-sided narrowing. L3-L4: There is circumferential broad-based disc bulge with severe facet arthropathy and ligamentum flavum thickening resulting in severe spinal stenosis and bilateral subarticular zone narrowing with encroachment of L4 nerve roots. There is mild bilateral foraminal narrowing. Unchanged. L4-L5: There is severe disc space narrowing, increased since prior with degenerative endplate changes and nonmarginal osteophytes not resulting in spinal stenosis. There is mild right greater than left subarticular zone narrowing with possible compression of the right L5 nerve root. There is mild facet arthropathy with ligamentum flavum hypertrophy contributing to narrowing. There is moderate right foraminal narrowing and mild left-sided narrowing, slightly increased since prior. L5-S1: There is disc desiccation and mild loss disc height and circumferential broad-based disc bulge. There is mild facet arthropathy with trace fluid in the facet joints, greater on the prior. There is no spinal stenosis subarticular zone narrowing. There is mild to moderate right and moderate left foraminal narrowing, slightly increased from the prior. MR/MR lumbar spine wo con IMPRESSION: L2-L3: There is [id number] spinal stenosis and subarticular zone narrowing, greater on the left, slightly increased from the prior. L3-L4: There is severe spinal stenosis and bilateral subarticular zone narrowing with encroachment of L4 nerve roots. L4-L5: There is mild right greater than left subarticular zone narrowing with possible compression of the right L5 nerve root. There is moderate right foraminal narrowing, slightly increased since prior. L5-S1: . There is mild to moderate right and moderate left foraminal narrowing, slightly increased from the prior. Electronically signed by: Abram Kulkarni MD 05/31/2025 11:18 AM EDT
--- OUTSIDE RECORDS SUMMARY | 2025-05-31 11:03 | XMS_ITS | Clinical Summary ---
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 Name Role Phone Roberto Poe MD Primary [...] Description 03/22/2025 9:15 AM EDT Office Visit [address] [address] Chivo Layne MD Chau, Stephanie, PT Chronic right shoulder pain (Primary Dx) 03/07/2025 11:15 AM EDT Office Visit [address] [address] Chivo Layne MD Chau, Stephanie, PT Chronic right shoulder pain (Primary Dx) 03/07/2025 Plan of Care Documentation [address] [address] from Last 3 Months Social History Tobacco [...] years) (1 of 1 - PCV) 2000 INFLUENZA VACCINE (#1) 2025 , 06/27/2023, 06/29/2022, Additional history exists COVID-19 VACCINE ( season) 2025 06/15/2024, 06/27/2023, 06/10/2022, Additional history exists RSV [...] topic Medical Devices Not on file Insurance [employer] SUPPLEMENT MEDICARE PART A & B [employer] SUPPLEMENT MEDICARE PART A & B [employer] MEDEX SUPPLEMENT [employer] MEDEX SUPPLEMENT [employer] MEDEX SUPPLEMENT MEDICARE PART A & B [employer] SUPPLEMENT [employer] MEDEX SUPPLEMENT MEDICARE PART A & B [employer] MEDEX SUPPLEMENT MEDICARE PART A & B [place] [employer] MEDEX SUPPLEMENT MEDICARE PART A & B Care Teams Washing Tub Operator Relationship Specialty Start Date End Date Roberto Poe MD [address] [place] [id number] PCP - General Internal Medicine 01/30/25 Additional Source Comments The information contained in this document represents components of the legal health record. It is not the complete legal health record.[facility]
== END 2025-05-31 10:04 | disposition home or self-care (01) ==
LOC: HO.MRI 10:03
PROVIDERS: Visit Provider Internal Medicine
DX: M48.00 Spinal stenosis, site unspecified (principal)
CPT/HCPCS: 72148

== ENCOUNTER → 2025-05-31 10:15 | Outpatient (BNV) | payer MEDICARE, SELFPAY | PROVIDERS: Visit Provider Radiology Diagnostic Radiology | DX: M48.061 Spinal stenosis, lumbar region without neurogenic claudication (principal) | CPT/HCPCS: 72148 ==

== ENCOUNTER 2025-06-04 09:42 | Outpatient (AMB) | payer MEDICARE, SELFPAY ==
[2025-06-04 09:47] VITALS: BP 131/76; PULSE 60; RESP 16; TEMP 36.6; O2SAT 99; BMI 28.2
--- NOTE | 2025-06-04 09:47 | MHC.PC.OV ---
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 [employer]springs Required: No Accompanied by: Self / Same As Patient Allergies No Known Allergies (No Known Allergies*) Allergy (Verified 06/04/25 09:50) Tobacco use date assessed: 05/20/25 Dental Screening Dental Screen Date: 01/14/25 COUNTS INCLUDE 234 BEDS AT THE [facility] Medical History Spinal stenosis Right lower quadrant abdominal pain DJD of right shoulder Bicipital tenosynovitis Subdeltoid bursitis of right shoulder joint 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 Fall Right shoulder injury Generalized anxiety disorder Essential hypertension Benign prostate hyperplasia Degenerative joint disease (DJD) of lumbar spine Surgical History History of colonoscopy (~11/05/19) Hx of hernia repair History of melanoma Family History Mother Lung cancer Social History Household Members: Family Housing: House Alcohol intake: current Alcohol intake frequency: holidays/special occasions only Patient Tobacco Use Status: Never used Tobacco e-Cigarette/Vaping Use: Never Used Substance Use Type: Marijuana service: No Current occupational status: retired Cognitive needs: No Hearing needs: No Vision needs: Yes (reading glasses) Questionnaire PHQ-9 Over the last 2 weeks, how often have you been bothered by any of the following problems? 1. Little interest or pleasure in doing things: not at all 2. Feeling down, depressed, or hopeless: not at all 3. Trouble falling or staying asleep, or sleeping too much: not at all 4. Feeling tired or having little energy: not at all 5. Poor appetite or overeating: not at all 6. Feeling bad about yourself - or that you are a failure or have let yourself or your family down: not at all 7. Trouble concentrating on things, such as reading the newspaper or watching television: not at all 8. Moving or speaking so slowly that other people could have noticed. Or the opposite - being so fidgety or restless that you have been moving around a lot more than usual: not at all 9. Thoughts that you would be better off or of hurting yourself in some way: not at all Total score: 0 Depression Screening Interpretation: Negative Depression Screening Done: Yes 41124 - PHQ-9 Billing: Yes Source: Developed by Drs. Rashi Lindsey, Tessie Sheehan, Johnnie Rosales and colleagues, with an educational bobby from [employer]. Thrive Questionnaire Date Thrive assessed: 03/26/25 I am a: Patient What is your living situation today?: I have a steady place to live Within the past 12 months, did the food you bought not last and you didn't have the money to get more?: Never true Within the past 12 months, did you worry whether your food would run out before you got money to buy more?: Never true Do you have trouble paying for medicines?: No Do you have trouble getting transportation to medical appointments?: No Do you have trouble paying your heating and electricity bill?: No Do you have trouble taking care of your child, family member or friend?: No Do you have trouble with day-to-day activities such as bathing, preparing meals, shopping, managing finances, etc.?: No Are you currently unemployed and looking for a job?: No Are you interested in more education?: No Please select the resources that you would like help with: None THRIVE Score: 0 AUDIT C Alcohol Use Questionnaire (AUDIT-C) 1. How often do you have a drink containing alcohol?: Monthly or less 2. How many drinks containing alcohol do you have on a typical day when you are drinking?: 1 or 2 3. How often do you have six or more drinks on one occasion?: Never Total Score: 1 Score Reviewed/Action Taken: No JANICE-7 AMB Questionnaire JANICE-7 Date JANICE - 7 assessed: 05/20/25 Feeling nervous, anxious, or on edge: 0 = Not at all Not being able to stop or control worryin = Not at all Worrying too much about different things: 0 = Not at all Trouble relaxin = Not at all Being so restless that it is hard to sit still: 0 = Not at all Becoming easily annoyed or irritable: 0 = Not at all Feeling afraid as if something awful might happen: 0 = Not at all Total JANICE-7 score (0-4 normal; 5-9 mild; 10-14 moderate; 15-21 severe): 0 Source: Developed by Drs. Rashi Lindsey, Tessie Sheehan, Johnnie Rosales and colleagues, with an educational bobby from [employer]. JANICE-7 Assessment Billing JANICE-7 Assessment Tool: JANICE-7 Assessment 57376 Physical exam (Primary Care) Vital Signs: Last Vital Signs Temp 97.8 F 06/04/25 09:47 Pulse 60 06/04/25 09:47 Resp 16 06/04/25 09:47 BP 131/76 06/04/25 09:47 Pulse Ox 99 06/04/25 09:47 Oxygen Delivery Method Room Air 06/04/25 09:47 BMI result Body Mass Index 28.2 Tobacco/Smoking Status: Tobacco use Status Tobacco use date assessed 05/20/25 06/04/25 09:51 Patient Tobacco Use Status Never used Tobacco 06/04/25 09:51 e-Cigarette/Vaping Use Never Used 06/04/25 09:51 PHQ-9: PHQ-9 Score PHQ-9: Total score 0 06/04/25 09:51 Depression Screening Interpretation: Negative Thrive Assessment: Date of Thrive Assessment Date Thrive assessed 03/26/25 06/04/25 09:51 Coding Level of Care Code Est Pt Prev Care >65y(58744) Diagnoses Annual physical exam Z00.00 Additional Codes JANICE-7 Assessment Billing - JANICE-7 Assessment Tool: JANICE-7 Assessment 51618 ([id number]) PHQ-9 - 68929 - PHQ-9 Billing: Yes ([id number]) Assessment & Plan Assessment & Plan (1) Annual physical exam: Code(s): Z00.00 - Encounter for general adult medical examination without abnormal findings Plan: History of Present Illness - The patient is a 47-year-old female presenting for a wellness visit. - Seasonal Allergies: The patient takes Zyrtec daily for seasonal allergies, using an ivjz-wsh-jyzsuak formulation. - Preventative Care: She had a mammogram in October as part of her routine screening and completed a colonoscopy, which was uneventful and not due for another 10 years. - Lifestyle: She is a vegetarian and a runner, currently training for a half marathon. - Vision: She underwent LASIK 20 years ago and has 20/20 vision with minor halos at night. - Social History: She works from home in [employer] and has two children aged 11 and 13. Social History - Employment: Works from home in [employer]. - Family Status: Has two children aged 11 and 13. - Exercise: Long-time vegetarian and runner, currently training for a half marathon. Review of Systems - General: Denies any specific health concerns. - Allergic/Immunologic: Reports seasonal allergies managed with Zyrtec. - Ophthalmologic: Reports 20/20 vision post-LASIK with minor halos at night. - Musculoskeletal: Denies joint aches except minor discomfort from exercise. Physical Exam General: Cooperative and healthy appearing Nutritional Appearance: Well nourished Orientation/consciousness: Patient oriented x3 Limitations: No limitations Head: Normal to inspection General: Appearance normal, both eyes and all related structures Neck: Normal visual inspection Chest: Normal palpation of entire chest wall Respiratory: Patient reports no issues with breathing, currently training for a half marathon. ormal respiratory effort Neurology: Patient oriented x3, vision is good with minor halos at night but does not interfere with driving. Results - Labs: Last blood work in July showed normal kidney, liver, and cholesterol levels. - Screening Tests: Mammogram completed in October; colonoscopy completed and not due for 10 years. Plan 1. Seasonal Allergies - Continue Zyrtec as needed for symptom management. 2. Preventative Care: Mammogram - Routine mammogram completed; continue annual screenings. 3. Preventative Care: Colonoscopy - Colonoscopy completed; next screening due in 10 years. Discussion Notes During the visit, we discussed the patient's current management of seasonal allergies with Zyrtec and confirmed that her preventative screenings, including mammogram and colonoscopy, are up to date. We agreed to continue her current regimen and maintain annual screenings as per guidelines. Patient Instructions - Continue taking Zyrtec daily for seasonal allergies. - Schedule and attend annual mammogram screenings. - Follow up with a colonoscopy in 10 years. Orders: Referrals Gastroenterology Referral Z12.11 - Encounter for screening for malignant neoplasm of colon
--- OUTSIDE RECORDS SUMMARY | 2025-06-04 11:23 | XMS_ITS | Clinical Summary ---
Author Organization [facility] Address [address] [facility] [address] [place] [phone] Phone Care Team Providers Care Bulk Station Agent Name Role Phone Roberto Poe MD Primary [...] Description 03/22/2025 9:15 AM EDT Office Visit [address] [address] Chivo Layne MD Chau, Stephanie, PT Chronic right shoulder pain (Primary Dx) 03/07/2025 11:15 AM EDT Office Visit [address] [address] Chivo Layne MD Chau, Stephanie, PT Chronic right shoulder pain (Primary Dx) 03/07/2025 Plan of Care Documentation [address] [address] from Last 3 Months Social History Tobacco [...] topic Medical Devices Not on file Insurance [employer] SUPPLEMENT MEDICARE PART A & B [employer] SUPPLEMENT MEDICARE PART A & B [employer] MEDEX SUPPLEMENT [employer] MEDEX SUPPLEMENT [employer] MEDEX SUPPLEMENT MEDICARE PART A & B [employer] SUPPLEMENT [employer] MEDEX SUPPLEMENT MEDICARE PART A & B [employer] MEDEX SUPPLEMENT MEDICARE PART A & B [place] [employer] MEDEX SUPPLEMENT MEDICARE PART A & B Care Teams Bulk Station Agent Relationship Specialty Start Date End Date Roberto Poe MD [address] [place] [id number] PCP - General Internal Medicine 01/30/25 Additional Source Comments The information contained in this document represents components of the legal health record. It is not the complete legal health record.[facility]
== END 2025-06-04 10:20 | disposition home or self-care (01) ==
LOC: HO.HMCSH 09:42
PROVIDERS: PCP Internal Medicine; Visit Provider Internal Medicine
DX: Z00.00 Encounter for general adult medical examination without abnormal findings (principal)

== ENCOUNTER → 2025-06-04 09:42 | Outpatient (BNVA) | payer MEDICARE, SELFPAY | PROVIDERS: PCP Internal Medicine; Visit Provider Internal Medicine | DX: Z00.00 Encounter for general adult medical examination without abnormal findings (principal); J30.2 Other seasonal allergic rhinitis; M48.061 Spinal stenosis, lumbar region without neurogenic claudication | CPT/HCPCS: 96127; 99397 ==

== ENCOUNTER 2025-06-06 09:28 | Outpatient (AMB) | payer MEDICARE, SELFPAY ==
--- NOTE | 2025-06-06 09:31 | A.SPINEOV_ITS ---
Vital Signs 06/06/25 09:36 Height 6 ft Weight 195 lb BMI 26.4 Intake Visit Reasons: spinal stenosis Intake Note: Mr. Sparks is here today c/o severe low back pain radiating to the legs. Director Of Women'S Services Required: No Allergies No Known Allergies (No Known Allergies*) Allergy (Verified 06/06/25 09:36) Physical Exam Vital Signs: BMI result Body Mass Index 26.4 Assessment & Plan Assessment & Plan (1) Lumbar degenerative disc disease: Code(s): M51.369 - Other intervertebral disc degeneration, lumbar region without mention of lumbar back pain or lower extremity pain Category: Medical Plan Dear Dr. Poe, Thank you for referring Jamie to our office today. He is a pleasant 74-year-old male who comes in today for evaluation of low back pain and shooting pain into his bilateral lower extremities. When describing his pain he states that it starts in his low back and travels into the bilateral posterior thighs. He denies anterior thigh cramping. He reports that his pain worsens with activity such as standing or walking, and is alleviated by sitting down and resting. He is a very active person, and states that he is able to carry wood, engage in Pilates/yoga, and go to the gym fairly regularly. Unfortunately in the last 7-8 weeks he feels his overall activity has been fairly limited show in his baseline as a result of his pain. He rates his pain as an 8/10 throughout the day with some episodes of alleviation in some episodes of exacerbation. Despite this, he states he is still able to walk about a 1/2 mi before he needs to sit down to rest due to the pain. He is still able to go to the store and complete grocery shopping independently without relying on a shopping cart to get around. He does most of the cooking and housework in his home, and states he is still able to do this as well. He has attempted physical therapy for this issue but states it was not helpful for him. He also attempted healthcare administrative assistant and did obtain some relief from lumbar traction, but states otherwise healthcare administrative assistant was not very helpful. He has thus far failed conservative management and is seeking evaluation today for surgical recommendations. PMH: Bicipital tenosynovitis, Subdeltoid bursitis of right shoulder joint, Tendinopathy of right shoulder, Generalized anxiety disorder, Essential hypertension, Benign prostate hyperplasia. Social hx: The patient does not smoke, reports no substance use. Medications: See [employer] list. Allergies: NKDA. Physical exam: The patient has full 5/5 strength in his upper and lower extremities. He ambulates well and rises from a seated position without difficulty. He uses no assistive devices to ambulate. His gait is nonantalgic and non spastic. He reports no significant sensational deficits to light touch during examination. His reflexes are 1+ hypoactive in the bilateral patella, and 2+ normal elsewhere. (-) Alamo's, (-) clonus, (-) bilateral straight leg raise. Imaging review: MRI of the lumbar spine completed here at [facility] shows severe disc degeneration at L1-2, L2-3. There is notable endplate edema and Modic endplate changes with anterior osteophyte bridging at these levels. There is what I would call moderate-severe central canal stenosis and severe left-sided foraminal stenosis at L2-3. Normal klamath disc height is maintained at L3-4, however the patient has severe central canal and bilateral foraminal stenosis at this level. There also appears to be a slight anterior listhesis of L3. There is severe right-sided foraminal stenosis at L4-5. Impression: Jamie is a pleasant 74-year-old male who comes in today for evaluation of low back pain in the shooting pains into his bilateral posterior thighs. This has been ongoing for many years but seems to have exacerbated over the course of the last 7-8 weeks. He reports he has seen a neurosurgeon once before for this issue and was evaluated by Dr. Hernández in 2021 who informed him that he had severe degenerative disc disease. He is more amenable to the idea of a small procedure such as lumbar decompression/microdiskectomy versus a larger procedure such as lumbar fusion. We discussed this at great length. I do believe his symptoms are most likely coming from the severe degenerative disc disease at L1-2, L2-3. However the severe stenosis at L3-4 can not be ignored either. We discussed how he may be a candidate for lumbar decompression L3-4 to relieve the severe stenosis at this level, however the utility for this surgery only to relieve his back pain and posterior thigh pain is low as I believe the bulk of his back pain is likely coming from the severe disc degeneration. We extensively discussed both multilevel lumbar fusion and simple lumbar decompression during this visit utilizing the spine models in office. The patient reported that he would like to see his primary care physician again, and consider injections as a possible modality to relieve his pain. I believe this is completely reasonable and should be attempted prior to surgical intervention. I encouraged him to reach back out to our office for a subsequent follow-up visit if his pain worsens, or if he does not obtain relief from injections. Thank you for allowing us to care for your patient. The total time spent with this visit with this patient was 45 minutes reviewing history, physical exam, MRI imaging review, and implementation of treatment plan or further diagnostic testing Deepak Hardin MD,PhD [facility] Coding Level of Care Code New Pt Level 4 (31736) Diagnoses Lumbar degenerative disc disease M51.369
[2025-06-06 09:36] VITALS: BMI 26.4
--- OUTSIDE RECORDS SUMMARY | 2025-06-06 11:00 | XMS_ITS | Clinical Summary ---
Author Organization [facility] Address [address] [facility] [address] [place] [id number] Phone Care Team Providers Care Special Events Assistant Name Role Phone Roberto Poe MD Primary [...] Description 03/22/2025 9:15 AM EDT Office Visit [address] [address] Chivo Layne MD Chau, Stephanie, PT Chronic right shoulder pain (Primary Dx) 03/07/2025 11:15 AM EDT Office Visit [address] [address] Chivo Layne MD Chau, Stephanie, PT Chronic right shoulder pain (Primary Dx) 03/07/2025 Plan of Care Documentation [address] [address] from Last 3 Months Social History Tobacco [...] topic Medical Devices Not on file Insurance [employer] SUPPLEMENT MEDICARE PART A & B [employer] SUPPLEMENT MEDICARE PART A & B [employer]EX SUPPLEMENT [employer]oot MEDEX SUPPLEMENT komoot MEDEX SUPPLEMENT MEDICARE PART A & B [employer] SUPPLEMENT komoot MEDEX SUPPLEMENT MEDICARE PART A & B [employer] MEDEX SUPPLEMENT MEDICARE PART A & B [employer] MEDEX SUPPLEMENT MEDICARE PART A & B Care Teams Special Events Assistant Relationship Specialty Start Date End Date Roberto Poe MD [address] [place] [phone] PCP - General Internal Medicine 01/30/25 Additional Source Comments The information contained in this document represents components of the legal health record. It is not the complete legal health record.[facility]
== END 2025-06-06 10:33 | disposition home or self-care (01) ==
LOC: HO.HNS 09:29
PROVIDERS: PCP Internal Medicine; Referring Provider Internal Medicine; Visit Provider Physician Assistant
DX: M51.369 Other intervertebral disc degeneration, lumbar region without mention of lumbar back pain or lower extremity pain (principal)
CPT/HCPCS: 99204

== ENCOUNTER → 2025-06-06 09:28 | Outpatient (BNVA) | payer MEDICARE, SELFPAY | PROVIDERS: PCP Internal Medicine; Referring Provider Internal Medicine; Visit Provider Physician Assistant | DX: M54.50 Low back pain, unspecified (principal); M51.369 Other intervertebral disc degeneration, lumbar region without mention of lumbar back pain or lower extremity pain | CPT/HCPCS: 99202 ==

== ENCOUNTER 2025-06-13 07:55 | Outpatient (REF) | payer MEDICARE, SELFPAY ==
--- OUTSIDE RECORDS SUMMARY | 2025-06-13 08:00 | XMS_ITS | Clinical Summary ---
Author Organization [facility] Address [address] [facility] [address] [place] [phone] Phone Care Team Providers Care Paper And Prints Restorer Name Role Phone Roberto Poe MD Primary [...] Description 03/22/2025 9:15 AM EDT Office Visit [facility] [address] [place] [phone] Chivo Layne MD Chau, Stephanie, PT Chronic right shoulder pain (Primary Dx) from Last 3 Months Social History Tobacco [...] 06/27/2023, 06/29/2022, Additional history exists COVID-19 VACCINE (2023- season) 2025 06/15/2024, 06/27/2023, 06/10/2022, Additional history [...] topic Medical Devices Not on file Insurance [employer] MEDEX SUPPLEMENT MEDICARE PART A & B [employer] SUPPLEMENT MEDICARE PART A & B [employer]EX SUPPLEMENT [employer] MEDEX SUPPLEMENT [employer] MEDEX SUPPLEMENT MEDICARE PART A & B [employer] MEDEX SUPPLEMENT [employer] MEDEX SUPPLEMENT MEDICARE PART A & B MEDEX SUPPLEMENT MEDICARE PART A & B [employer] MEDEX SUPPLEMENT MEDICARE PART A & B Care Teams Paper And Prints Restorer Relationship Specialty Start Date End Date Roberto Poe MD [address] [place] [phone] PCP - General Internal Medicine 01/30/25 Additional Source Comments The information contained in this document represents components of the legal health record. It is not the complete legal health record.[facility]
[2025-06-13 08:38] LABS: Hematocrit 46.8 % (42.0-52.0); Hemoglobin 15.8 g/dl (14.0-18.0); Mean Corpuscular HGB Conc 33.8 g/dl (31.0-36.0); Mean Corpuscular Hemoglobin 31.2 pg (27.0-33.0); Mean Corpuscular Volume 92.5 fL (80.0-98.0); NRBC Abs Auto 0.000 X10*3/uL (0.0-0.012); NRBC Pct Auto 0.0 /100WBC (0.0-0.2); Platelet Count 190 X10*3/uL (160-400); Red Blood Count 5.06 X10*6/uL (4.60-5.80); White Blood Count 5.6 X10*3/uL (4.8-10.8)
[2025-06-13 09:05] LABS: Appearance Urine Clear; Glucose Urine UA Negative (Negative); PH 7.0 (5.0-9.0); Specific Gravity - Urine 1.020 (1.005-1.025); UMIC TRIGGER UA YES
[2025-06-13 10:09] LABS: Alanine Aminotransferase 22 U/L (0-40); Albumin Level 4.4 g/dL (3.5-5.0); Alkaline Phosphatase 82 U/L (39-117); Anion Gap 12 (12-20); Aspartate Amino Transferase 43 U/L (5-37); Blood Urea Nitrogen 18 mg/dL (9-16); Calcium 9.5 mg/dL (8.4-10.2); Carbon Dioxide 26 mmol/L (22-29); Chloride 109 mmol/L (96-108); Cholesterol 209 mg/dL (<200); Estimated Glomerular Filt Rate > 60; HDL Cholesterol 56 mg/dL (>40); Potassium 4.2 mmol/L (3.3-5.1); Sodium 143 mmol/L (135-145); Total Protein 7.1 g/dL (6.5-8.0); Triglycerides 107 mg/dL (<150)
[2025-06-13 10:19] LABS: Thyroid Stimulating Hormone 1.16 uIU/mL (0.32-4.0)
== END 2025-06-13 07:56 | disposition home or self-care (01) ==
LOC: HO.LAB 07:55
PROVIDERS: PCP Internal Medicine; Visit Provider Internal Medicine
DX: M54.51 Vertebrogenic low back pain (principal); M48.00 Spinal stenosis, site unspecified; G89.4 Chronic pain syndrome; M47.816 Spondylosis without myelopathy or radiculopathy, lumbar region; Z12.5 Encounter for screening for malignant neoplasm of prostate; F41.1 Generalized anxiety disorder; I10 Essential (primary) hypertension; N40.0 Benign prostatic hyperplasia without lower urinary tract symptoms
CPT/HCPCS: 36415; 80048; 80061; 80076; 81001; 81003; 84153; 84443; 85027; 99202

== ENCOUNTER 2025-06-13 13:13 | Outpatient (AMB) | payer MEDICARE, SELFPAY ==
[2025-06-13 13:18] VITALS: BP 189/86; PULSE 59; RESP 18; O2SAT 98; BMI 27.3
--- NOTE | 2025-06-13 13:18 | A.OFFVIS_ITS ---
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 He reports pain alleviation with leaning f orward while walking , he denies coughing or sneezing aggravate his pain. He reports his pain level 8/10 today. He reports that standing and walking aggravate his pain the most. He denies pain aggravation with standing. He went for consult with Dr. Hardin office, Deepak examined the patient, the MRI was performed on his lumbar spine. He has very well advanced spinal stenosis. He denies any pelvic organ dysfunction, he denies weakness in bilateral lower extremities he denies numbness in bilateral lower extremities. He was offered microdiskectomy and mini laminotomy surgeries versus big fusion procedure however the patient was very reluctant to go for major surgery. He wanted to try some injections and he was sent to us. He is able to sleep normally because of his pain he is very eager to do his daily activities he is able to take care of himself and he is able to function normally he is retired individual. Pulsing throbbing and pounding describes his pain in the back include as well as dull hurting and heavy spreading radiating and piercing sensation. He had extensive physical therapy with no improvement. He had chiropractic manipulations with minimal improvement. The MRI of his lumbar spine report dictated as below. Past medical history significant for arthritis, past surgical history significant for hernia repair in 2005 and melanoma removal in 2009. He has every 6 months under observation of the oracle business intelligence developer. He denies smoking cigarettes he drinks alcohol socially he drinks caffeinated beverages and he admits cannabis. Of note: We administered today Oswestry low back disability questionnaire. The questionnaire number is equal to 15. This justifies moderate disability. 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 Fall Right shoulder injury Generalized anxiety disorder Essential hypertension Benign prostate hyperplasia Degenerative joint disease (DJD) of lumbar spine Surgical History History of colonoscopy (~11/05/19) Hx of hernia repair History of melanoma Family History Mother Lung cancer Social History Household Members: Family Housing: House Alcohol intake: current Alcohol intake frequency: holidays/special occasions only Patient Tobacco Use Status: Never used Tobacco e-Cigarette/Vaping Use: Never Used Substance Use Type: Marijuana service: No Current occupational status: retired Cognitive needs: No Hearing needs: No Vision needs: Yes (reading glasses) Review of Systems Const All systems reviewed & are unremarkable except as noted in HPI and below ENT Reports Normal hearing present Neuro Reports Normal hearing present, Denies Abnormal speech present, Denies confusion and Denies Sensory deficit (Neuro) Psych Denies confusion Physical Exam Vital Signs: Last Vital Signs Pulse 59 06/13/25 13:18 Resp 18 06/13/25 13:18 BP 189/86 H 06/13/25 13:18 Pulse Ox 98 06/13/25 13:18 Oxygen Delivery Method Room Air 06/13/25 13:18 BMI result Body Mass Index 27.3 Const General: no acute distress; No confusion Orientation/consciousness: patient oriented x3 and No confusion Eyes General: appearance normal, both eyes and all related structures Pupils: Equal, round and reactive pupils present EOM: EOMs intact bilaterally Neck Neck: Yes full ROM Chest Chest palpation & inspection: normal inspection of the chest Resp Effort & Inspection: normal respiratory effort, able to speak in complete sentences, normal respiratory pattern, no audible wheezes and no cough Cardio Jugular venous distension: no JVD GI Inspection: Yes normal to inspection Back/Spine/Pelvis Other: Flexing forward does not aggravate his pain while flexing backwards make his pain more severe. Loading test is equivocal bilaterally. SLR test is negative bilaterally. Lasegue test is negative bilaterally Camilo test is negative bilaterally. There is no tenderness on palpation in paraspinal or spinal regions of lumbar spine there is no tenderness on palpation in projection of bilateral sacroiliac joints. Neuro General: patient oriented x3, gait normal and No confusion Cranial nerves: Yes CN's II-XII intact bilaterally, Yes Equal, round and reactive pupils present, Yes Normal hearing present and Yes Ability to bilaterally elevate shoulders present Speech: No Abnormal speech present Gait exam (Neuro): Normal gait present Motor exam (neuro): 5/5 motor strength present throughout Sensory Exam: No Sensory deficit (Neuro) Extrem General: No pedal edema Psych Speech and movement: Normal speech and movement present Affect: normal affect Attitude: cooperative Thought process: Normal thought process present Thought content: Normal thought content present Insight: Good insight present (Psych) Judgement: Good judgement present (Psych) Results Reviewed Results Reviewed: MRI Lumbar Spine without Contrast. TECHNIQUE: Multiplanar multisequence MR imaging was performed through the lumbar spine without contrast. INDICATION: M48.00 - Spinal stenosis, site unspecified PRIOR: October 16, 2021 FINDINGS: 5 non-rib bearing lumbar segments are present Marrow and end-plates: Modic 2 signal changes are present L1-2, L2-3, and L4-5 and Modic 1 signal change is present at L5-S1. Alignment: L3-4 demonstrates grade 1 anterolisthesis, and L1-2 and L4-5 demonstrate subtle retrolisthesis. Soft tissues: Again noted is a large simple renal cysts involving the right kidney that is incompletely imaged but previously characterized on CT abdomen October 17, 2023. Conus: The termination of conus medullaris is within normal limits at the level of T12. T12-L1: Unremarkable L1-L2: There is severe disc space narrowing with endplate osteophytes and circumferential broad-based disc bulge not resulting in spinal stenosis or foraminal narrowing. L2-L3: There is moderate to severe disc space narrowing and circumferential broad-based disc bulge with osteophytes resulting in vujf-hq-owomfcob spinal stenosis and subarticular zone narrowing, greater on the left, slightly increased from the prior. There is mild left foraminal narrowing without right-sided narrowing. L3-L4: There is circumferential broad-based disc bulge with severe facet arthropathy and ligamentum flavum thickening resulting in severe spinal stenosis and bilateral subarticular zone narrowing with encroachment of L4 nerve roots. There is mild bilateral foraminal narrowing. Unchanged. L4-L5: There is severe disc space narrowing, increased since prior with degenerative endplate changes and nonmarginal osteophytes not resulting in spinal stenosis. There is mild right greater than left subarticular zone narrowing with possible compression of the right L5 nerve root. There is mild facet arthropathy with ligamentum flavum hypertrophy contributing to narrowing. There is moderate right foraminal narrowing and mild left-sided narrowing, slightly increased since prior. L5-S1: There is disc desiccation and mild loss disc height and circumferential broad-based disc bulge. There is mild facet arthropathy with trace fluid in the facet joints, greater on the prior. There is no spinal stenosis subarticular zone narrowing. There is mild to moderate right and moderate left foraminal narrowing, slightly increased from the prior. MR/MR lumbar spine wo con IMPRESSION: L2-L3: There is szjz-eo-xfqveegr spinal stenosis and subarticular zone narrowing, greater on the left, slightly increased from the prior. L3-L4: There is severe spinal stenosis and bilateral subarticular zone narrowing with encroachment of L4 nerve roots. L4-L5: There is mild right greater than left subarticular zone narrowing with possible compression of the right L5 nerve root. There is moderate right foraminal narrowing, slightly increased since prior. L5-S1: . There is mild to moderate right and moderate left foraminal narrowing, slightly increased from the prior. Assessment & Plan Assessment & Plan (1) Vertebrogenic low back pain: Code(s): M54.51 - Vertebrogenic low back pain Category: Medical (2) Spinal stenosis: Code(s): M48.00 - Spinal stenosis, site unspecified Category: Medical (3) Chronic pain syndrome: Code(s): G89.4 - Chronic pain syndrome Category: Medical (4) Spondylosis of lumbar region without myelopathy or radiculopathy: Code(s): M47.816 - Spondylosis without myelopathy or radiculopathy, lumbar region Category: Medical Plan Most likely pain of this patient is multifactorial in nature. Very significant Modic type changes are noted at L5-S1. However his clinical presentation make me think about spinal stenosis. He went for consult with neurosurgery and he was offered the surgery on the lower back to alleviate his pain. He was given 65% chance of improvement of his pain. He is not very happy about this number, he is not very eager to go for spinal surgery. He does not like the idea of prolonged recovery after spinal surgery, he is physically active, he denies deficits in the lower extremities or pelvis dysfunction symptoms related to spinal stenosis. We held prolonged and detailed conversation about his options. I told him that I can try diagnostic medial branch block to diagnose and possibly help his lower back pain, however if the diagnostic medial branch block will result in less than substantial response I can try to treat his pain with Nevro spinal cord stimulator. Vertebra genic pain syndrome can be considered as well and radiofrequency ablation of the L5 and S1 basivertebral nerves could be tried. Patient Instructions: I here by testify that I spent 48 minutes in conversation with this patient as well as evaluating his prior records and prior diagnostic studies as well as diagnostic images, as well as planning his care and organizing this note. Coding Level of Care Code New Pt Level 4 (54519) Diagnoses Vertebrogenic low back pain M54.51 Spinal stenosis M48.00 Chronic pain syndrome G89.4 Spondylosis of lumbar region without myelopathy or radiculopathy M47.816
== END 2025-06-13 13:55 | disposition home or self-care (01) ==
LOC: HO.PMC 13:14
PROVIDERS: PCP Internal Medicine; Referring Provider Internal Medicine; Visit Provider Anesthesiology
DX: M54.51 Vertebrogenic low back pain (principal); M48.00 Spinal stenosis, site unspecified; G89.4 Chronic pain syndrome; M47.816 Spondylosis without myelopathy or radiculopathy, lumbar region
CPT/HCPCS: 99204

== ENCOUNTER 2025-07-02 06:17 | Outpatient (REF) | payer MEDICARE, SELFPAY ==
--- NOTE | ~2025-07-02 | FL_ITS ---
EXAMINATION: FL GUIDANCE ONLY HISTORY: M47.816 - Spondylosis without myelopathy or radiculopathy, lumbar region COMPARISON: None available. TECHNIQUE: Fluoroscopy time: 37.8 seconds. Cumulative Dose: 9.35 mGy. Images: 9. FINDINGS: Fluoroscopic spot films of the lumbar spine in the AP projection demonstrate needles and contrast material in the regions of the bilateral L3-4, L4-5, and L5-S1 facet joints. FL/FL guidance in treatment room IMPRESSION: Fluoroscopy during procedure. Please see procedure report for additional information. Electronically signed by: Rashi Solano MD 07/02/2025 01:11 PM EDT
--- OUTSIDE RECORDS SUMMARY | 2025-07-02 06:19 | XMS_ITS | Clinical Summary ---
Author Organization [facility] Address [address] [place] [phone] Phone Care Team Providers Care Manager Portable Name Role Phone Roberto Poe MD Primary [...] by mouth nightly at bedtime. 11/11/2024 Active Social History Tobacco Use Types Packs/Day Years [...] topic Medical Devices Not on file Insurance [employer] MEDEX SUPPLEMENT MEDICARE PART A & B [employer] MEDEX SUPPLEMENT MEDICARE PART A & B [employer] MEDEX SUPPLEMENT [employer] MEDEX SUPPLEMENT [employer] MEDEX SUPPLEMENT MEDICARE PART A & B [employer] MEDEX SUPPLEMENT MEDICARE PART A & B [employer] MEDEX SUPPLEMENT MEDICARE PART A & B [employer] MEDEX SUPPLEMENT MEDICARE PART A & B Care Teams Manager Portable Relationship Specialty Start Date End Date Roberto Poe MD [address] [place] [phone] PCP - General Internal Medicine 01/30/25 Additional Source Comments The information contained in this document represents components of the legal health record. It is not the complete legal health record.[facility]
== END 2025-07-02 06:18 | disposition home or self-care (01) ==
LOC: CF 06:17
PROVIDERS: Visit Provider Anesthesiology
DX: M47.816 Spondylosis without myelopathy or radiculopathy, lumbar region (principal)
CPT/HCPCS: 64493; 64494; J2003; J2795; Q9967

== ENCOUNTER 2025-07-02 10:12 | Outpatient (AMB) | payer MEDICARE, SELFPAY ==
[2025-07-02 10:19] VITALS: BP 114/69; PULSE 65; RESP 16; O2SAT 99
--- NOTE | 2025-07-02 10:19 | A.OFFVIS_ITS ---
Vital Signs 07/02/25 10:19 07/02/25 10:52 BP 114/69 119/68 Blood Pressure Location Lt brachial Lt brachial Position Sitting Sitting Respiration 16 16 Pulse 65 77 Pulse Source Pulse Oximeter Pulse Oximeter Pulse Oximetry (%) 99 100 Oxygen Delivery Method Room Air Room Air Intake Visit Reasons: Bilateral Diagnostic L3-L4-DR L5 MBB Tour Coordinator Required: No Allergies No Known Allergies (No Known Allergies*) Allergy (Verified 07/02/25 10:20) Medication List - Last Reconciled 07/02/25 by Ros Zurita LPN escitalopram oxalate 10 mg PO DAILY hydrochlorothiazide 25 mg PO QAM lisinopril 40 mg PO DAILY lorazepam 1 mg PO BID PRN multivitamin 1 tab PO DAILY sildenafil 50 mg PO DAILY PRN simvastatin 20 mg PO DAILY PFSH Medical History Spinal stenosis Right lower quadrant abdominal pain DJD of right shoulder Bicipital tenosynovitis Subdeltoid bursitis of right shoulder joint 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 Fall Right shoulder injury Generalized anxiety disorder Essential hypertension Benign prostate hyperplasia Degenerative joint disease (DJD) of lumbar spine Surgical History History of colonoscopy (~11/05/19) Hx of hernia repair History of melanoma Family History Mother Lung cancer Social History Household Members: Family Housing: House Alcohol intake: current Alcohol intake frequency: holidays/special occasions only Patient Tobacco Use Status: Never used Tobacco e-Cigarette/Vaping Use: Never Used Substance Use Type: Marijuana service: No Current occupational status: retired Cognitive needs: No Hearing needs: No Vision needs: Yes (reading glasses) Physical Exam Vital Signs: Last Vital Signs Pulse 77 07/02/25 10:52 Resp 16 07/02/25 10:52 BP 119/68 07/02/25 10:52 Pulse Ox 100 07/02/25 10:52 Oxygen Delivery Method Room Air 07/02/25 10:52 Assessment & Plan Assessment & Plan (1) Spondylosis of lumbar region without myelopathy or radiculopathy: Code(s): M47.816 - Spondylosis without myelopathy or radiculopathy, lumbar region Category: Medical Plan Diagnostic medial branch block L3,L4 dorsal ramus L5 bilateral.? ? ?Informed consent was explained to the patient. All questions were explained and? answered.? The patient was taken inside the operating room where she was positioned prone on the operating table. Time-out was performed delineating correct site, side, the nature of the procedure, patient's allergy, . All operating room staff was participating in OR time-out procedure. ? ? The lower back was prepped with ChloraPrep and draped with sterile utility towels.? C-arm was brought over the operating field and sq picture of L4-, L5 vertebra and S1 AREA were delineated on the screen.? Question about transitional anatomy was raised about this patient lower lumbar spine silhouette, on the lateral view the disc between S1 and S2 vertebra seem to be prominent. Nevertheless the dorsal ramus L5 was chosen as the position of the confluence of the sacral allow bilaterally with superior articular process of S1. Point of interest were delineated as confluence of superior articular process of L4 and L5 vertebra bilaterally with corresponding transverse processes as well as confluence of the sacral alae bilaterally with superior articular process of S1.? The projection of the point of interest to the skin were injected with the small amount of local anesthetic lidocaine 2% mixed with ropivacaine 0.5% 1-1 approximately 1 cc.? After that 22 gauge 3.5 inch spinal needle was driven sequentially to the points of interest in tunnel vision fashion. After needles gently contacted the bone at the point of interests the needle was injected with small amount of the contrast.? The injection of the contrast did not demonstrate any intravascular or intrathecal spread of the contrast.? After that injection of the? ropivacaine 0.5%-1cc was performed at each needle location.?After that the needles were removed and Bandaids were appl ied. Orders: Orders FL guidance in treatment room Today M47.816 - Spondylosis without myelopathy or radiculopathy, lumbar region Coding Level of Care Code Procedure Only Diagnoses Spondylosis of lumbar region without myelopathy or radiculopathy M47.816
[2025-07-02 10:52] VITALS: BP 119/68; PULSE 77; RESP 16; O2SAT 100
== END 2025-07-02 10:53 | disposition home or self-care (01) ==
LOC: HO.PMCPRC 10:12
PROVIDERS: PCP Internal Medicine; Visit Provider Anesthesiology
DX: M47.816 Spondylosis without myelopathy or radiculopathy, lumbar region (principal)
CPT/HCPCS: 64493; 64494

== ENCOUNTER 2025-07-04 13:41 | Outpatient (AMB) | payer MEDICARE, SELFPAY ==
--- OUTSIDE RECORDS SUMMARY | 2025-07-04 13:44 | XMS_ITS | Clinical Summary ---
Author Organization [facility] Address [address] [place] [phone] Phone Care Team Providers Care Technical Services Rep Name Role Phone Roberto Poe MD Primary [...] 06/27/2023, 06/29/2022, Additional history exists COVID-19 VACCINE (2024- season) 2025 06/15/2024, 06/27/2023, 06/10/2022, Additional history [...] topic Medical Devices Not on file Insurance [employer] MEDEX SUPPLEMENT MEDICARE PART A & B [employer] MEDEX SUPPLEMENT MEDICARE PART A & B [employer] MEDEX SUPPLEMENT [employer] MEDEX SUPPLEMENT [employer] MEDEX SUPPLEMENT MEDICARE PART A & B [employer] MEDEX SUPPLEMENT MEDICARE PART A & B [employer] MEDEX SUPPLEMENT MEDICARE PART A & B [employer] MEDEX SUPPLEMENT MEDICARE PART A & B Care Teams Technical Services Rep Relationship Specialty Start Date End Date Roberto Poe MD [address] [place] [id number] PCP - General Internal Medicine 01/30/25 Additional Source Comments The information contained in this document represents components of the legal health record. It is not the complete legal health record.[facility]
--- NOTE | 2025-07-04 13:52 | MHC.OFFVIS ---
Vital Signs 07/04/25 13:53 Height 6 ft Weight 201 lb BMI 27.3 BP 122/73 Blood Pressure Location Lt brachial Position Sitting Respiration 16 Pulse 93 Pulse Source Pulse Oximeter Pulse Oximetry (%) 98 Oxygen Delivery Method Room Air Intake Visit Reasons: S/P Bilateral Diagnostic L3-L4-DR L5 [employer] Planner Required: No Allergies No Known Allergies (No Known Allergies*) Allergy (Verified 07/04/25 13:52) HPI Comments Details: Jamie is back in my office after diagnostic medial branch block L3, L4, dorsal ramus L5. He reports no pain improvement after the procedure. His pain was alleviated very slightly however if this could be explained by systemic action of the local anesthetic. Therefore we discuss possibility of further treatment. He has advanced Modic type changes especially at L2 and L3 vertebra. However her pain is mostly in the projection of L4-5 and S1 vertebra. Besides he reports that prolonged sitting and lifting objects from the floor does not aggravate his pain. He reports pain increase with activity but states that his pain is mostly aggravated by standing and walking. My differential diagnosis is between the spinal stenosis and the vertebra genic low back pain. We agreed today that I will schedule him for the trial of Nevro spinal cord stimulator trying to alleviate his pain in spinal stenosis as soon as he will pass psychological evaluation with [facility]. However if the results of the Nevro spinal cord stimulator will be less than substantial in terms of managing his pain I would need to consider BVN RFA for this patient to help his pain before I will consider any other modalities of treatment. 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 He reports pain alleviation with leaning forward while walking , he denies coughing or sneezing aggravate his pain. He reports his pain level 8/10 today. He reports that standing and walking aggravate his pain the most. He denies pain aggravation with standing. He went for consult with Dr. Hardin office, Deepak examined the patient, the MRI was performed on his lumbar spine. He has very well advanced spinal stenosis. He denies any pelvic organ dysfunction, he denies weakness in bilateral lower extremities he denies numbness in bilateral lower extremities. He was offered microdiskectomy and mini laminotomy surgeries versus big fusion procedure however the patient was very reluctant to go for major surgery. He wanted to try some injections and he was sent to us. He is able to sleep normally because of his pain he is very eager to do his daily activities he is able to take care of himself and he is able to function normally he is retired individual. Pulsing throbbing and pounding describes his pain in the back include as well as dull hurting and heavy spreading radiating and piercing sensation. He had extensive physical therapy with no improvement. He had chiropractic manipulations with minimal improvement. The MRI of his lumbar spine report dictated as below. Past medical history significant for arthritis, past surgical history significant for hernia repair in 2005 and melanoma removal in 2009. He has every 6 months under observation of the carpet binder. He denies smoking cigarettes he drinks alcohol socially he drinks caffeinated beverages and he admits cannabis. Of note: We administered today Oswestry low back disability questionnaire. The questionnaire number is equal to 15. This justifies moderate disability. 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 Fall Right shoulder injury Generalized anxiety disorder Essential hypertension Benign prostate hyperplasia Degenerative joint disease (DJD) of lumbar spine Surgical History History of colonoscopy (~11/05/19) Hx of hernia repair History of melanoma Family History Mother Lung cancer Social History Household Members: Family Housing: House Alcohol intake: current Alcohol intake frequency: holidays/special occasions only Patient Tobacco Use Status: Never used Tobacco e-Cigarette/Vaping Use: Never Used Substance Use Type: Marijuana service: No Current occupational status: retired Cognitive needs: No Hearing needs: No Vision needs: Yes (reading glasses) Review of Systems Const All systems reviewed & are unremarkable except as noted in HPI and below ENT Reports Normal hearing present Neuro Reports Normal hearing present, Denies Abnormal speech present, Denies confusion and Denies Sensory deficit (Neuro) Psych Denies confusion Physical Exam Vital Signs: Last Vital Signs Pulse 93 07/04/25 13:53 Resp 16 07/04/25 13:53 BP 122/73 07/04/25 13:53 Pulse Ox 98 07/04/25 13:53 Oxygen Delivery Method Room Air 07/04/25 13:53 BMI result Body Mass Index 27.3 Const General: no acute distress; No confusion Orientation/consciousness: patient oriented x3 and No confusion Eyes General: appearance normal, both eyes and all related structures Pupils: Equal, round and reactive pupils present EOM: EOMs intact bilaterally Neck Neck: Yes full ROM Chest Chest palpation & inspection: normal inspection of the chest Resp Effort & Inspection: normal respiratory effort, able to speak in complete sentences, normal respiratory pattern, no audible wheezes and no cough Cardio Jugular venous distension: no JVD GI Inspection: Yes normal to inspection Back/Spine/Pelvis Other: Flexing forward does not aggravate his pain while flexing backwards make his pain more severe. Loading test is equivocal bilaterally. SLR test is negative bilaterally. Lasegue test is negative bilaterally Camilo test is negative bilaterally. There is no tenderness on palpation in paraspinal or spinal regions of lumbar spine there is no tenderness on palpation in projection of bilateral sacroiliac joints. Neuro General: patient oriented x3, gait normal and No confusion Cranial nerves: Yes CN's II-XII intact bilaterally, Yes Equal, round and reactive pupils present, Yes Normal hearing present and Yes Ability to bilaterally elevate shoulders present Speech: No Abnormal speech present Gait exam (Neuro): Normal gait present Motor exam (neuro): 5/5 motor strength present throughout Sensory Exam: No Sensory deficit (Neuro) Extrem General: No pedal edema Psych Speech and movement: Normal speech and movement present Affect: normal affect Attitude: cooperative Thought process: Normal thought process present Thought content: Normal thought content present Insight: Good insight present (Psych) Judgement: Good judgement present (Psych) Assessment & Plan Assessment & Plan (1) Vertebrogenic low back pain: Code(s): M54.51 - Vertebrogenic low back pain Category: Medical (2) Spinal stenosis: Code(s): M48.00 - Spinal stenosis, site unspecified Category: Medical (3) Chronic pain syndrome: Code(s): G89.4 - Chronic pain syndrome Category: Medical (4) Spondylosis of lumbar region without myelopathy or radiculopathy: Code(s): M47.816 - Spondylosis without myelopathy or radiculopathy, lumbar region Category: Medical Plan Most likely pain of this patient is multifactorial in nature. Very significant Modic type changes are noted at L5-S1 as well as L2-L3. However his clinical presentation make me think about spinal stenosis. He went for consult with neurosurgery and he was offered the surgery on the lower back to alleviate his pain. He was given 65% chance of improvement of his pain. He is not very happy about this number, he is not very eager to go for spinal surgery. He does not like the idea of prolonged recovery after spinal surgery, he is physically active, he denies deficits in the lower extremities or pelvis dysfunction symptoms related to spinal stenosis. Considering the source of this pain to be spondylosis of the lumbar spine I performed medial branch block L3, L4, dorsal ramus L5 bilateral. Unfortunately this did not result in significant improvement of the patient's pain. I can not consider his joints a source of his pain. We agreed that we will be trialing Nevro SCS to treat the spinal stenosis before I will consider intercept RFA for this patient. He was given [facility] broch[facility] he will be calling them to schedule an appointment, as soon as he will pass psychological evaluation we will schedule him for the trial of Nevro SCS. Coding Level of Care Code Est Pt Level 3 (14072) Diagnoses Vertebrogenic low back pain M54.51 Spinal stenosis M48.00 Chronic pain syndrome G89.4 Spondylosis of lumbar region without myelopathy or radiculopathy M47.816
[2025-07-04 13:53] VITALS: BP 122/73; PULSE 93; RESP 16; O2SAT 98; BMI 27.3
== END 2025-07-04 14:40 | disposition home or self-care (01) ==
LOC: HO.PMC 13:41
PROVIDERS: PCP Internal Medicine; Visit Provider Anesthesiology
DX: M54.51 Vertebrogenic low back pain (principal); M48.00 Spinal stenosis, site unspecified; G89.4 Chronic pain syndrome; M47.816 Spondylosis without myelopathy or radiculopathy, lumbar region
CPT/HCPCS: 99213

== ENCOUNTER → 2025-07-04 13:41 | Outpatient (BNVA) | payer MEDICARE, SELFPAY | PROVIDERS: PCP Internal Medicine; Visit Provider Anesthesiology | DX: M47.816 Spondylosis without myelopathy or radiculopathy, lumbar region (principal); M54.51 Vertebrogenic low back pain; G89.4 Chronic pain syndrome; Z79.899 Other long term (current) drug therapy | CPT/HCPCS: 99212 ==

== ENCOUNTER 2025-08-09 12:38 | Day surgery (SDC) | payer MEDICARE, SELFPAY ==
--- OUTSIDE RECORDS SUMMARY | 2025-07-26 11:12 | XMS_ITS | Clinical Summary ---
Author Organization [facility] Address [address] [place] [id number] Phone Care Team Providers Care Member Services Coordinator Name Role Phone Roberto Poe MD Primary [...] topic Medical Devices Not on file Insurance [employer] MEDEX SUPPLEMENT MEDICARE PART A & B [employer] MEDEX SUPPLEMENT MEDICARE PART A & B [employer] MEDEX SUPPLEMENT [employer] MEDEX SUPPLEMENT [employer] MEDEX SUPPLEMENT MEDICARE PART A & B [employer] MEDEX SUPPLEMENT MEDICARE PART A & B [employer] MEDEX SUPPLEMENT MEDICARE PART A & B [employer] MEDEX SUPPLEMENT MEDICARE PART A & B Care Teams Member Services Coordinator Relationship Specialty Start Date End Date Roberto Poe MD [address] [place] [phone] PCP - General Internal Medicine 01/30/25 Additional Source Comments The information contained in this document represents components of the legal health record. It is not the complete legal health record.[facility]
--- NOTE | 2025-08-06 11:47 | HO.ANESPROP2 ---
HPI - Anesthesia Eval Consult details Narrative: 74 yr old male for Spinal Cord Stimulation Trial [facility] Active Problems Active Problems: All Active Problems Spondylosis of lumbar region without myelopathy or radiculopathy (Acute) Chronic pain syndrome (Acute) Vertebrogenic low back pain (Acute) Lumbar degenerative disc disease (Acute) Spinal stenosis (Acute) Right lower quadrant abdominal pain (Acute) DJD of right shoulder (Acute) Bicipital tenosynovitis (Acute) Subdeltoid bursitis of right shoulder joint (Acute) Tendinopathy of right shoulder (Acute) Anxiety with flying (Acute) Fall (Acute) Right shoulder injury (Acute) Generalized anxiety disorder (Acute) Essential hypertension (Acute) Benign prostate hyperplasia (Acute) Degenerative joint disease (DJD) of lumbar spine (Acute) Past Medical History Medical History Spinal stenosis Right lower quadrant abdominal pain DJD of right shoulder Bicipital tenosynovitis Subdeltoid bursitis of right shoulder joint 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 Fall Right shoulder injury Generalized anxiety disorder Essential hypertension Benign prostate hyperplasia Degenerative joint disease (DJD) of lumbar spine Family History Family History Mother Lung cancer Surgical History Surgical History History of colonoscopy (~11/05/19) Hx of hernia repair History of melanoma Social History Social History Household Members: Family Housing: House Alcohol intake: current Alcohol intake frequency: holidays/special occasions only Patient Tobacco Use Status: Never used Tobacco e-Cigarette/Vaping Use: Never Used Substance Use Type: Marijuana service: No Current occupational status: retired Cognitive needs: No Hearing needs: No Vision needs: Yes (reading glasses) Meds Allergies Allergy/AdvReac Type Severity Reaction Status Date / Time No Known Allergies (No Known Allergy Verified 07/04/25 13:52 Allergies*) Home Medications ?Medication ?Instructions ?Recorded ?Confirmed ?Last Taken ?Type multivitamin 1 tab PO DAILY 11/27/24 07/02/25 Unknown History sildenafil 50 mg tablet 50 mg PO DAILY PRN 11/27/24 07/02/25 Unknown History Exam Pertinent Lab Results Pertinent Lab Results: Laboratory Tests 06/13/25 08:13 WBC 5.6 RBC 5.06 Hgb 15.8 Hct 46.8 Plt Count 190 Sodium 143 Potassium 4.2 Chloride 109 H Carbon Dioxide 26 BUN 18 H Creatinine 1.01
[2025-08-07 11:01] VITALS: BMI 28.2
--- NOTE | ~2025-08-09 | FL_ITS ---
EXAMINATION: FL GUIDANCE ONLY HISTORY: spinal cord stim trial COMPARISON: None available. TECHNIQUE: Fluoroscopy time: 54.6 seconds. Cumulative Dose: 17.590 mGy. DAP: 7.6516 Gycm2 Images: 4. FINDINGS: Fluoroscopic spot films of the thoracic spine demonstrate placement of a neural stimulator. FL/FL guidance in OR IMPRESSION: Fluoroscopy during procedure. Please see procedure report for additional information. Electronically signed by: Rashi Solano MD 08/14/2025 07:38 AM [facility]I
[2025-08-09] MEDS: oxyCODONE HCl Immed Release 5 MG TABLET PO (14:07)
[2025-08-09 14:27] VITALS: BP 139/78; PULSE 54; RESP 15; TEMP 36.6; O2SAT 97
--- NOTE | 2025-08-09 14:29 | MHC.SHP ---
Pre-Procedural Eval Section A - 24 Hr Update-Section A only Date of Service: 08/09/25 The patient is an INPATIENT: No Changes since office visit: Yes Patient answered all questions The patient has been examined within 24 hours of the surgical procedure. The History & Physical has been completed within 30 days and I have reviewed it.: No Section B - Complete if H&P > 30 days Chief Complaint: Chronic pain syndrome Details of Present Illness: as above Relevant Family History (Specify if Yes): No Relevant Social History: None Present Medications: see Short Stay Collaborative assessment Medical History: No relevant PMH History of Previous Operations: No relevant previous surgery Allergies: Allergies Allergy/AdvReac Type Severity Reaction Status Date / Time No Known Allergies (No Known Allergy Verified 08/09/25 13:18 Allergies*) Review of Systems Sugical H&P ROS: Negative: Constitution, Cardiovascular, Respiratory, Neurological, Psychiatric, Hem-Onc, Allergic/Immunologic, Gastrointestinal, Genitourinary, Musculoskeletal, Integumentary, Endocrine and Eyes/Ears/Nose/Throat Exam Surgical H&P Exam: Normal: HEENT, Normal: Heart, Normal: Lungs, Normal: Extremities, Normal: Abdomen, Normal: Skin and Normal: Neurological Plan Diagnosis/Plan: Unchanged I have reviewed the history and physical and performed a pertinent physical examination on my patient. No changes have occurred unless specified. Time Spent With Patient Time: Total time managing care of this patient today ___5_ minutes.
--- NOTE | 2025-08-09 14:31 | P.OP_ITS ---
Operative Note Operative Note Date of Service: 08/09/25 Narrative: Trial of spinal cord stimulator old gentleman who came today into the operating room for the trial of spinal cord stimulator for the treatment of chronic pain syndrome, spondylosis of lumbar spine, disc degeneration lumbar.. Preoperatively patient received ?cefazolin 2. g approximately 30 minutes before the procedure. After obtaining informed consent the patient was brought to the operating room, he was positioned prone on the table ?Time-out was performed delineating correct site, side, the nature of the procedure, patient's allergy, preoperative antibiotic if needed.? All operating room staff was participating in OR time-out procedure Patient's entire back was prepped with ChloraPrep twice and draped with full body fenestrated drape .? Sterilely draped C-arm was brought over operating field and square picture of? T12-L1 and N1bjachtniv as were demonstrated on the screen.? The skin was? infiltrated with the mixture of lidocaine 2% and ropivacaine 0.5% in the projection of the right pedicle of L2 to vertebra. After that? number 11 Blade scalpel was used to perform small nory in the skin. t the attention? was concentrated on the T12-L1 epidural interspace.? The location of the projection of the right pedicle center of the? L2 vertebra was found on the skin using C-arm.? This location was injected with mixture of lidocaine 2% and Marcaine 0.5% 5 cc.? ? 10 cm 14 gauge? introducer epidural needle was inserted through the skin and advanced to? T12-L1 epidural interspace.? The advancement of the needle was performed on anterior posterior and lateral views.? Guitar wire and loss of resistance technique were used to locate epidural space.? When guitar wire was spread in the epidural fashion, epidural lead was inserted through the needle and it was advanced to the posterior epidural space. We were able to advance the tip of the electrode to the level of T7 vertebra in the posterior epidural space. Lateral view verify position of the electrode in posterior epidural space. After that location of the projection of the LEFT pedicle center of the L2 vertebra was found using C-arm.? This location was injected with mixture of lidocaine 2% and Marcaine 0.5% 5 cc.?10 cm 14 gauge? introducer epidural needle was inserted through the skin and advanced to T12-L1 epidural interspace.? The advancement of the needle was performed on anterior posterior and lateral views.? Guitar wire and loss of resistance technique were used to locate epidural space.? ? Loss of resistance to air technique and guitar wire were used to locate epidural space. After that the? epidural lead was advanced? slightly left to the midline? to the top of the?T7 vertebra in the posterior epidural space slightly left to the existing electrode.? ?Lateral view demonstrated appro priate position of the electrodes in the posterior epidural space. At this moment patient was awakened and the epidural leads were connected to testing device. Patient reported stimulation roughly corresponding to his pain distribution. After satisfactory position of the leads were established the needles were withdrawn, the stylette wires were removed from the epidural leads.? The anchoring devices were dislodged on the leads and advanced to the level of the skin. ?After that the anchoring devices were sutured to the skin using Tycron 1-0 sutures - 2 sutures per each anchoroing device?. The fixation scews were locked until 3 clicks heard. Position of the electrodes was verified again. After that bacitracin ointment was applied to the tips of the anchoring devices at the places where electrodes were entering through the skin sterile dressing was applied with Tegaderm. The stimulating device was connected to epidural leads and it was taped to the skin as well. At this moment the patient was fully awake he was transferred on the stretcher and brought to PACU for recovery.
--- NOTE | 2025-08-09 14:34 | P.BOP_ITS ---
Brief Operative Note Date of Service: 08/09/25 Pre-op diagnosis: radiculopathy lumbar chronic pain syndrome Post-op diagnosis: same Procedure: trial of Nevro spinal cord stimulator. Implants: nothing permanent Surgeon: Vincenzo Beverly MD Anesthesia: local Was an Retirement Assistant used for this Procedure?: No Estimated blood loss (mL): 2 Condition: stable Disposition: PACU
[2025-08-09 15:45] VITALS: BP 141/79; PULSE 52; RESP 16; TEMP 37; O2SAT 99
== END 2025-08-09 16:24 | disposition home or self-care (01) ==
PROVIDERS: PCP Internal Medicine; Visit Provider Anesthesiology
PROC: (CPT 63650; principal; 2025-08-09 13:40)
DX: M47.816 Spondylosis without myelopathy or radiculopathy, lumbar region (principal); G89.4 Chronic pain syndrome; M48.061 Spinal stenosis, lumbar region without neurogenic claudication; M54.51 Vertebrogenic low back pain; R26.2 Difficulty in walking, not elsewhere classified; F41.1 Generalized anxiety disorder; I10 Essential (primary) hypertension; Z85.820 Personal history of malignant melanoma of skin; Z98.890 Other specified postprocedural states; Z91.81 History of falling
CPT/HCPCS: 63650 ×2; C1889; C1897; J0690; J2003; J2795

== ENCOUNTER → 2025-08-09 12:38 | Outpatient (BNV) | payer MEDICARE, SELFPAY | PROVIDERS: PCP Internal Medicine; Visit Provider Anesthesiology | DX: G89.4 Chronic pain syndrome (principal); M54.16 Radiculopathy, lumbar region | CPT/HCPCS: 63650 ==

== ENCOUNTER 2025-08-15 11:06 | Outpatient (AMB) | payer MEDICARE, SELFPAY ==
[2025-08-15 11:13] VITALS: BP 153/87; PULSE 57; RESP 16; O2SAT 96; BMI 39.1
--- NOTE | 2025-08-15 11:13 | A.OFFVIS_ITS ---
Vital Signs 08/15/25 11:13 Height 5 ft 1 in Weight 207 lb BMI 39.1 BP 153/87 H Blood Pressure Location Rt brachial Position Sitting Respiration 16 Pulse 57 Pulse Source Pulse Oximeter Pulse Oximetry (%) 96 Oxygen Delivery Method Room Air Intake Visit Reasons: S/p NEVRO SCS Trial 08/09/25 Child Support Case Officer Required: No Accompanied by: Self / Same As Patient Allergies No Known Allergies (No Known Allergies*) Allergy (Verified 08/15/25 11:13) HPI Comments Details: Jamie is back in my office after SCS Nevro trial. He reports less than substantial pain improvement and no effect on activities and mobility with the SCS. He is interested in 2nd neurosurgical opinion. I also explained to the patient that although his complains and physical examination are not exactly pertinent to vertebra genic low back pain the multiple sites of Modic type c hanges on his MRI are quite impressive and if he wants me to perform the intercept procedure for him I will be glad to do so. I also explained to the patient that if he will go for surgical fusion in his lumbar spine performance of the intercept procedure will be more difficult because the pedicles will be occupied by hardware. The dressing was removed, the wounds were washed with ChloraPrep, the sutures were severed with sterile scalpel, no redness no swelling no pathological discharge were observed. Sterile Band-Aid was applied. Hygiene limitations were explained to the patient. We agreed that he will schedule appointment with us after he will explore his surgical options. He wants to know 2nd opinion in the local neurosurgeons. Intrathecal pain pump was briefly explained to the patient, intercept brochure and [employer] intrathecal pain pump brochure were given to the patient. Prior: diagnostic medial branch block L3, L4, dorsal ramus L5. He reports no pain improvement after the procedure. His pain was alleviated very slightly however if this could be explained by systemic action of the local anesthetic. Therefore we discuss possibility of further treatment. He has advanced Modic type changes especially at L2 and L3 vertebra. However her pain is mostly in the projection of L4-5 and S1 vertebra. Besides he reports that prolonged sitting and lifting objects from the floor does not aggravate his pain. He reports pain increase with activity but states that his pain is mostly aggravated by standing and walking. My differential diagnosis is between the s jane stenosis and the vertebra genic low back pain. We agreed today that I will schedule him for the trial of Nevro spinal cord stimulator trying to alleviate his pain in spinal stenosis as soon as he will pass psychological evaluation with [facility]. However if the results of the Nevro spinal cord stimulator will be less than substantial in terms of managing his pain I would need to consider BVN RFA for this patient to help his pain before I will consider any other modalities of treatment. 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 He reports pain alleviation with leaning forward while walking , he denies coughing or sneezing aggravate his pain. He reports his pain level 8/10 today. He reports that standing and walking aggravate his pain the most. He denies pain aggravation with standing. He went for consult with Dr. Hardin office, Deepak examined the patient, the MRI was performed on his lumbar spine. He has very well advanced spinal stenosis. He denies any pelvic organ dysfunction, he denies weakness in bilateral lower extremities he denies numbness in bilateral lower extremities. He was offered microdiskectomy and mini laminotomy surgeries versus big fusion procedure however the patient was very reluctant to go for major surgery. He wanted to try some injections and he was sent to us. He is able to sleep normally because of his pain he is very eager to do his daily activities he is able to take care of himself and he is able to function normally he is retired individual. Pulsing throbbing and pounding describes his pain in the back include as well as dull hurting and heavy spreading radiating and piercing sensation. He had extensive physical therapy with no improvement. He had chiropractic manipulations with minimal improvement. The MRI of his lumbar spine report dictated as below. Past medical history significant for arthritis, past surgical history significant for hernia repair in 2005 and melanoma removal in 2009. He has every 6 months under observation of the clinical document improvement educator. He denies smoking cigarettes he drinks alcohol socially he drinks caffeinated beverages and he admits cannabis. Of note: We administered today Oswestry low back disability questionnaire. The questionnaire number is equal to 15. This justifies moderate disability. 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 Right shoulder injury Generalized anxiety disorder Essential hypertension Benign prostate hyperplasia Degenerative joint disease (DJD) of lumbar spine Surgical History History of colonoscopy (~11/05/19) Hx of hernia repair History of melanoma Family History Mother Lung cancer Social History Household Members: Family Housing: House Alcohol intake: current Alcohol intake frequency: holidays/special occasions only Patient Tobacco Use Status: Never used Tobacco e-Cigarette/Vaping Use: Never Used Substance Use Type: Marijuana service: No Current occupational status: retired Cognitive needs: No Hearing needs: No Vision needs: Yes (reading glasses) Review of Systems Const All systems reviewed & are unremarkable except as noted in HPI and below ENT Reports Normal hearing present Neuro Reports Normal hearing present, Denies Abnormal speech present, Denies confusion and Denies Sensory deficit (Neuro) Psych Denies confusion Physical Exam Vital Signs: Last Vital Signs Pulse 57 08/15/25 11:13 Resp 16 08/15/25 11:13 BP 153/87 H 08/15/25 11:13 Pulse Ox 96 08/15/25 11:13 Oxygen Delivery Method Room Air 08/15/25 11:13 BMI result Body Mass Index 39.1 Const General: no acute distress; No confusion Orientation/consciousness: patient oriented x3 and No confusion Eyes General: appearance normal, both eyes and all related structures Pupils: Equal, round and reactive pupils present EOM: EOMs intact bilaterally Neck Neck: Yes full ROM Chest Chest palpation & inspection: normal inspection of the chest Resp Effort & Inspection: normal respiratory effort, able to speak in complete sentences, normal respiratory pattern, no audible wheezes and no cough Cardio Jugular venous distension: no JVD GI Inspection: Yes normal to inspection Back/Spine/Pelvis Other: Flexing forward does not aggravate his pain while flexing backwards make his pain more severe. Loading test is equivocal bilaterally. SLR test is negative bilaterally. Lasegue test is negative bilaterally Camilo test is negative bilaterally. There is no tenderness on palpation in paraspinal or spinal regions of lumbar spine there is no tenderness on palpation in projection of bilateral sacroiliac joints. Neuro General: patient oriented x3, gait normal and No confusion Cranial nerves: Yes CN's II-XII intact bilaterally, Yes Equal, round and reactive pupils present, Yes Normal hearing present and Yes Ability to bilaterally elevate shoulders present Speech: No Abnormal speech present Gait exam (Neuro): Normal gait present Motor exam (neuro): 5/5 motor strength present throughout Sensory Exam: No Sensory deficit (Neuro) Extrem General: No pedal edema Psych Speech and movement: Normal speech and movement present Affect: normal affect Attitude: cooperative Thought process: Normal thought process present Thought content: Normal thought content present Insight: Good insight present (Psych) Judgement: Good judgement present (Psych) Results Reviewed Results Reviewed: MRI Lumbar Spine without Contrast. TECHNIQUE: Multiplanar multisequence MR imaging was performed through the lumbar spine without contrast. INDICATION: M48.00 - Spinal stenosis, site unspecified PRIOR: October 16, 2021 FINDINGS: 5 non-rib bearing lumbar segments are present Marrow and end-plates: Modic 2 signal changes are present L1-2, L2-3, and L4-5 and Modic 1 signal change is present at L5-S1. Alignment: L3-4 demonstrates grade 1 anterolisthesis, and L1-2 and L4-5 demonstrate subtle retrolisthesis. Soft tissues: Again noted is a large simple renal cysts involving the right kidney that is incompletely imaged but previously characterized on CT abdomen October 17, 2023. Conus: The termination of conus medullaris is within normal limits at the level of T12. T12-L1: Unremarkable L1-L2: There is severe disc space narrowing with endplate osteophytes and circumferential broad-based disc bulge not resulting in spinal stenosis or foraminal narrowing. L2-L3: There is moderate to severe disc space narrowing and circumferential broad-based disc bulge with osteophytes resulting in [id number] spinal stenosis and subarticular zone narrowing, greater on the left, slightly increased from the prior. There is mild left foraminal narrowing without right-sided narrowing. L3-L4: There is circumferential broad-based disc bulge with severe facet arthropathy and ligamentum flavum thickening resulting in severe spinal stenosis and bilateral subarticular zone narrowing with encroachment of L4 nerve roots. There is mild bilateral foraminal narrowing. Unchanged. L4-L5: There is severe disc space narrowing, increased since prior with degenerative endplate changes and nonmarginal osteophytes not resulting in spinal stenosis. There is mild right greater than left subarticular zone narrowing with possible compression of the right L5 nerve root. There is mild facet arthropathy with ligamentum flavum hypertrophy contributing to narrowing. There is moderate right foraminal narrowing and mild left-sided narrowing, slightly increased since prior. L5-S1: There is disc desiccation and mild loss disc height and circumferential broad-based disc bulge. There is mild facet arthropathy with trace fluid in the facet joints, greater on the prior. There is no spinal stenosis subarticular zone narrowing. There is mild to moderate right and moderate left foraminal narrowing, slightly increased from the prior. MR/MR lumbar spine wo con IMPRESSION: L2-L3: There is [id number] spinal stenosis and subarticular zone narrowing, greater on the left, slightly increased from the prior. L3-L4: There is severe spinal stenosis and bilateral subarticular zone narrowing with encroachment of L4 nerve roots. L4-L5: There is mild right greater than left subarticular zone narrowing with possible compression of the right L5 nerve root. There is moderate right foraminal narrowing, slightly increased since prior. L5-S1: . There is mild to moderate right and moderate left foraminal narrowing, slightly increased from the prior. Assessment & Plan Assessment & Plan (1) Vertebrogenic low back pain: Code(s): M54.51 - Vertebrogenic low back pain Category: Medical (2) Spinal stenosis: Code(s): M48.00 - Spinal stenosis, site unspecified Category: Medical (3) Chronic pain syndrome: Code(s): G89.4 - Chronic pain syndrome Category: Medical (4) Spondylosis of lumbar region without myelopathy or radiculopathy: Code(s): M47.816 - Spondylosis without myelopathy or radiculopathy, lumbar region Category: Medical Plan Most likely pain of this patient is multifactorial in nature. Very significant Modic type changes are noted at L5-S1 as well as L2-L3. However his clinical presentation make me think about spinal stenosis. He went for consult with neurosurgery and he was offered the surgery on the lower back to alleviate his pain. He was given 65% chance of improvement of his pain. He is not very happy about this number, he is not very eager to go for spinal surgery. He does not like the idea of prolonged recovery after spinal surgery, he is physically active, he denies deficits in the lower extremities or pelvis dysfunction symptoms related to spinal stenosis. Considering the source of this pain to be spondylosis of the lumbar spine I performed medial branch block L3, L4, dorsal ramus L5 bilateral. Unfortunately this did not result in significant improvement of the patient's pain. I can not consider his joints a source of his pain. I performed a trial of Nevro SCS for the patient however he reported no improvement for his pain. Therefore the Nevro implantation will not be performed for the patient. We discussed SCS today, we discussed I DDD [employer] and intercept procedure as well. Patient wants to hear 2nd opinion of the neurosurgeons. After that he will schedule appointment with me and we will discuss further treatment. Patient Instructions: I here by testify that I spent 32 minutes in conversation with this patient as well as planning his care and organizing this note. Coding Level of Care Code Est Pt Level 4 (14305) Diagnoses Vertebrogenic low back pain M54.51 Spinal stenosis M48.00 Chronic pain syndrome G89.4 Spondylosis of lumbar region without myelopathy or radiculopathy M47.816
--- OUTSIDE RECORDS SUMMARY | 2025-08-15 17:17 | XMS_ITS | Clinical Summary ---
Author Organization [facility] Address [address] [place] [id number] Phone Care Team Providers Care Concrete Vibrator Operator Name Role Phone Roberto Poe MD [...] topic Medical Devices Not on file Insurance [employer] SU[employer] MEDICARE PART A & B [employer] SU[employer]MENT MEDICARE PART A & B [employer] SUPP[employer]MENT [employer] SU[employer]MENT [employer] SUPPLEMENT MEDICARE PART A & B [employer] SUPP[employer]MENT MEDICARE PART A & B [employer] SU[employer] MEDICARE PART A & B [employer] SU[employer] MEDICARE PART A & B Care Teams Concrete Vibrator Operator Relationship Specialty Start Date End Date Roberto Poe MD [address] [place] [id number] PCP - General Internal Medicine 01/30/25 Additional Source Comments The information contained in this document represents components of the legal health record. It is not the complete legal health record.[facility]
== END 2025-08-15 11:43 | disposition home or self-care (01) ==
LOC: HO.PMC 11:07
PROVIDERS: PCP Internal Medicine; Visit Provider Anesthesiology
DX: M54.51 Vertebrogenic low back pain (principal); M48.00 Spinal stenosis, site unspecified; G89.4 Chronic pain syndrome; M47.816 Spondylosis without myelopathy or radiculopathy, lumbar region
CPT/HCPCS: 99024

== ENCOUNTER → 2025-08-15 11:06 | Outpatient (BNVA) | payer MEDICARE, SELFPAY | PROVIDERS: PCP Internal Medicine; Visit Provider Anesthesiology | DX: M54.51 Vertebrogenic low back pain (principal); M48.00 Spinal stenosis, site unspecified; M47.816 Spondylosis without myelopathy or radiculopathy, lumbar region; G89.4 Chronic pain syndrome | CPT/HCPCS: 99212 ==

== ENCOUNTER 2025-08-19 08:44 | Outpatient (AMB) | payer MEDICARE, SELFPAY ==
[2025-08-19 08:46] VITALS: BP 133/61; PULSE 72; RESP 14; TEMP 36.6; O2SAT 98; BMI 28.9
--- NOTE | 2025-08-19 08:46 | A.OFFPC_ITS ---
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 - The patient has a diagnosis of spinal stenosis, which was confirmed by an MRI a few months ago and seems to be worsening. - Symptoms include persistent lower back pain that radiates to the bilateral hamstrings but not lower. - A lumbar MRI from May showed janna rowing at L1-L2, L3-L4, and L4-L5 with foraminal changes. - The patient has been under the care of Dr. Demarco at a pain management center, where diagnostic injections were tried without success. - A subsequent trial of a spinal cord st imulator for 6-7 days also provided no relief. - Dr. Demarco mentioned Intracept, a radi ofrequency ablation, as another non- surgical possibility. - The patient previously saw Dr. Meg Hernández years ago and had another MRI about three years ago, after which the patient saw a provider at [facility]. - More recently, the patient consulted w alannah Poe's PA, who reviewed the latest MRI and discussed two potential surgical procedures, one of which was described as a major surgery with an 80% chance of success. - The patient reports being an active pe rson but is currently unable to do yoga, Pilates, or go to the gym due to the pain, and has experienced some weight gain. Social History - The patient identifies as a pretty act michael individual. - Functional Status: The patient is curr ently unable to participate in yoga, Pilates, or go to the gym due to pain. - The patient has experienced recent chao ght gain. - [facility] [place] and prefers to see local doctors. Results - Imaging: A lumbar MRI performed in [facility] revealed spinal stenosis with narrowing at L1-L2, L3-L4, and L4-L5, along with foraminal changes. - Procedures: A trial of a spinal cord s timulator resulted in less than substantial pain improvement and no effect on activities. - Procedures: Diagnostic injections were ineffective. 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 Fall Right shoulder injury Generalized anxiety disorder Essential hypertension Benign prostate hyperplasia Degenerative joint disease (DJD) of lumbar spine Surgical History History of colonoscopy (~11/05/19) Hx of hernia repair History of melanoma Family History Mother Lung cancer Social History Household Members: Family Housing: House Alcohol intake: current Alcohol intake frequency: holidays/special occasions only Patient Tobacco Use Status: Never used Tobacco e-Cigarette/Vaping Use: Never Used Substance Use Type: Marijuana service: No Current occupational status: retired Cognitive needs: No Hearing needs: No Vision needs: Yes (reading glasses) Questionnaire PHQ-9 Over the last 2 weeks, how often have you been bothered by any of the following problems? 1. Little interest or pleasure in doing things: not at all 2. Feeling down, depressed, or hopeless: not at all 3. Trouble falling or staying asleep, or sleeping too much: not at all 4. Feeling tired or having little energy: not at all 5. Poor appetite or overeating: not at all 6. Feeling bad about yourself - or that you are a failure or have let yourself or your family down: not at all 7. Trouble concentrating on things, such as reading the newspaper or watching television: not at all 8. Moving or speaking so slowly that other people could have noticed. Or the opposite - being so fidgety or restless that you have been moving around a lot more than usual: not at all 9. Thoughts that you would be better off or of hurting yourself in some way: not at all Total score: 0 Depression Screening Interpretation: Negative Depression Screening Done: Yes 70136 - PHQ-9 Billing: Yes Source: Developed by Drs. Rashi Lindsey, Tessie Sheehan, Johnnie Rosales and colleagues, with an educational bobby from [employer]. Thrive Questionnaire Date Thrive assessed: 03/26/25 I am a: Patient What is your living situation today?: I have a steady place to live Within the past 12 months, did the food you bought not last and you didn't have the money to get more?: Never true Within the past 12 months, did you worry whether your food would run out before you got money to buy more?: Never true Do you have trouble paying for medicines?: No Do you have trouble getting transportation to medical appointments?: No Do you have trouble paying your heating and electricity bill?: No Do you have trouble taking care of your child, family member or friend?: No Do you have trouble with day-to-day activities such as bathing, preparing meals, shopping, managing finances, etc.?: No Are you currently unemployed and looking for a job?: No Are you interested in more education?: No Please select the resources that you would like help with: None THRIVE Score: 0 AUDIT C Alcohol Use Questionnaire (AUDIT-C) 1. How often do you have a drink containing alcohol?: Monthly or less 2. How many drinks containing alcohol do you have on a typical day when you are drinking?: 1 or 2 3. How often do you have six or more drinks on one occasion?: Never Total Score: 1 Score Reviewed/Action Taken: No JANICE-7 AMB Questionnaire JANICE-7 Date JANICE - 7 assessed: 05/20/25 Feeling nervous, anxious, or on edge: 0 = Not at all Not being able to stop or control worryin = Not at all Worrying too much about different things: 0 = Not at all Trouble relaxin = Not at all Being so restless that it is hard to sit still: 0 = Not at all Becoming easily annoyed or irritable: 0 = Not at all Feeling afraid as if something awful might happen: 0 = Not at all Total JANICE-7 score (0-4 normal; 5-9 mild; 10-14 moderate; 15-21 severe): 0 Source: Developed by Drs. Rashi Lindsey, Tessie Sheehan, Johnnie Rosales and colleagues, with an educational bobby from [employer]. JANICE-7 Assessment Billing JANICE-7 Assessment Tool: JANICE-7 Assessment 22125 Review of Systems Narrative Review of Systems - Musculoskeletal: Reports persistent lower back pain. - Neurological: Reports pain radiating to bilateral hamstrings. - Constitutional: Reports weight gain. Physical exam (Primary Care) Vital Signs: Last Vital Signs Temp 97.8 F 08/19/25 08:46 Pulse 72 08/19/25 08:46 Resp 14 08/19/25 08:46 BP 133/61 08/19/25 08:46 Pulse Ox 98 08/19/25 08:46 Oxygen Delivery Method Room Air 08/19/25 08:46 BMI result Body Mass Index 28.9 Tobacco/Smoking Status: Tobacco use Status Tobacco use date assessed 05/20/25 08/19/25 08:52 Patient Tobacco Use Status Never used Tobacco 08/19/25 08:52 e-Cigarette/Vaping Use Never Used 08/19/25 08:52 PHQ-9: PHQ-9 Score PHQ-9: Total score 0 08/19/25 08:52 Depression Screening Interpretation: Negative Thrive Assessment: Date of Thrive Assessment Date Thrive assessed 03/26/25 08/19/25 08:52 Narrative Physical Exam General: Appearance normal, both eyes and all related structures Nutritional Appearance: Gaining a little weight Orientation/consciousness: Patient oriented x3 Limitations: Unable to do yoga, Pilates, or go to the gym Head: Normal to inspection Neck: Normal visual inspection Chest: Normal palpation of entire chest wall Respiratory: Normal respiratory effort Neurology: Patient oriented x3 Office Procedures Flu Questionnaire Does the patient have a severe egg allergy?: No Does the patient have severe life threatening allergies?: No Does the patient have a fever or illness today?: No Has the patient ever had Guillain-Rupert Syndrome?: No Has the patient ever had any past reaction to a flu shot?: No Immunizations Fluarix [id number] (PF) 45 mcg (15 mcg x 3)/0.5 mL IM syringe Performing Provider: Roberto Poe MD [facility] Documented (not given) by: SUMMER Grier on 08/19/25 08:53 Reason Not Given: Received Previously Coding Level of Care Code Est Pt Level 4 (31643) Complex visit Add On G2211 Diagnoses Degenerative joint disease (DJD) of lumbar spine M47.816 Additional Codes JANICE-7 Assessment Billing - JANICE-7 Assessment Tool: JANICE-7 Assessment 79645 ([id number]) PHQ-9 - 98033 - PHQ-9 Billing: Yes ([id number]) Assessment & Plan Assessment & Plan (1) Degenerative joint disease (DJD) of lumbar spine: Code(s): M47.816 - Spondylosis without myelopathy or radiculopathy, lumbar region Category: Medical Plan Plan - Given the failure of conservative management, including diagnostic injections and a spinal cord stimulator trial, it is recommended that the patient pursue a neurosurgical evaluation for the chronic lower back pain and spinal stenosis. - The neurosurgical options discussed include less invasive procedures like a microdiscectomy and more extensive surgery such as lumbar decompression with fusion. - The patient is advised to consider the smaller neurosurgical procedure first. - A message will be sent to Dr. Poe's neurosurgery office to arrange a [id number] consultation for the patient to discuss these surgical options directly with him. Discussion Notes I discussed with the patient the current options for managing the chronic lower back pain, which has not responded to pain management interventions like injections and a spinal cord stimulator trial. We reviewed the two main paths forward: continuing with pain management, which might include procedures like Intracept, or pursuing a neurosurgical evaluation. I explained that neurosurgery offers options ranging from a small procedure, like a microdiscectomy, to a major surgery, such as lumbar decompression and fusion. I recommended pursuing the neurosurgical route because the patient is healthy and can likely handle the surgery, which offers a potential definitive solution rather than palliative care. We discussed Dr. Poe, and I noted that while outcomes are never guaranteed, many of my patients have benefited greatly from his procedures. The patient expressed a desire for a direct, [id number] consultation with Dr. Poe to discuss the options, which I affirmed as a legitimate request. I agreed to contact Dr. Poe's office to facilitate this meeting for the patient. Patient Instructions - It is recommended that you see a neurosurgeon to discuss surgical options for your back pain, since other treatments have not worked. - There are different types of surgery, including a smaller procedure called a microdiscectomy and a larger surgery involving fusion. - I will contact Dr. Poe's office to set up a [id number] appointment for you to talk with him directly. - Please wait for our office to get in touch with you about the scheduled appointment. Orders: Orders Influenza [id number] Immunization Today Z23 - Encounter for immunization
--- OUTSIDE RECORDS SUMMARY | 2025-08-19 09:11 | XMS_ITS | Clinical Summary ---
Author Organization [facility] Address [address] [place] [phone] Phone Care Team Providers Care Collateral Clerk Name Role Phone Roberto Poe MD Primary [...] topic Medical Devices Not on file Insurance [employer] MEDEX SUPPLEMENT MEDICARE PART A & B [employer] MEDEX SUPPLEMENT MEDICARE PART A & B [employer] MEDEX SUPPLEMENT [facility] [employer] MEDEX SUPPLEMENT [facility] [employer] MEDEX SUPPLEMENT MEDICARE PART A & B [facility] [employer] MEDEX SUPPLEMENT MEDICARE PART A & B [facility] [employer] MEDEX SUPPLEMENT MEDICARE PART A & B [facility] [employer] MEDEX SUPPLEMENT MEDICARE PART A & B Care Teams Collateral Clerk Relationship Specialty Start Date End Date Roberto Poe MD [address] [place] [id number] PCP - General Internal Medicine 01/30/25 Additional Source Comments The information contained in this document represents components of the legal health record. It is not the complete legal health record.[facility]
== END 2025-08-19 09:18 | disposition home or self-care (01) ==
LOC: HO.HMCSH 08:44
PROVIDERS: PCP Internal Medicine; Visit Provider Internal Medicine
DX: Z23 Encounter for immunization (principal); M47.816 Spondylosis without myelopathy or radiculopathy, lumbar region

== ENCOUNTER → 2025-08-19 08:44 | Outpatient (BNVA) | payer MEDICARE, SELFPAY | PROVIDERS: PCP Internal Medicine; Visit Provider Internal Medicine | DX: M47.816 Spondylosis without myelopathy or radiculopathy, lumbar region (principal); Z13.31 Encounter for screening for depression | CPT/HCPCS: 90471; 96127; 99212 ==

== ENCOUNTER 2025-08-30 13:18 | Outpatient (REF) | payer MEDICARE, SELFPAY ==
--- NOTE | ~2025-08-30 | XR_ITS ---
Examination:CR Xr Lumbar Spine 4v Min Technique: AP, and lateral: Flexion, neutral, and extension view x-rays of the lumbar spine. Prior: MRI 05/31/2025 INDICATION:M48.062 - Spinal stenosis, lumbar region with neurogenic claudication FINDINGS: There is mild convex right curvature of the third lumbar junction. There are 5 non-rib bearing lumbar segments. T12-L1: There is minimal disc space narrowing. L1-L2: There is moderate severe disc space narrowing with endplate sclerosis and osteophytes. There is subtle retrolisthesis. L2-L3: There is moderate severe disc space narrowing with endplate sclerosis and osteophytes. There is also facet sclerosis with osteophytes. L3-L4: There is mild disc space narrowing and mild grade 1 anterolisthesis. There is facet sclerosis. L4-L5: There is mild disc space narrowing and facet sclerosis. L5-S1: There is mild disc space narrowing with endplate osteophytes and facet sclerosis. There is no instability on flexion and extension views XR/XR lumbar spine 4V min IMPRESSION: Multilevel degenerative disc disease and facet osteoarthritis. Electronically signed by: Abram Kulkarni MD 08/30/2025 02:07 PM EVI
== END 2025-08-30 13:19 | disposition home or self-care (01) ==
LOC: HO.HOSX 13:18
PROVIDERS: PCP Internal Medicine; Visit Provider Neurological Surgery
DX: M48.062 Spinal stenosis, lumbar region with neurogenic claudication (principal); R10.31 Right lower quadrant pain
CPT/HCPCS: 72110

== ENCOUNTER 2025-08-30 13:18 | Outpatient (AMB) | payer MEDICARE, SELFPAY ==
--- NOTE | 2025-08-30 13:29 | HO.SPINEOV ---
Intake Visit Reasons: spinal stenosis Intake Note: Mr. Sparks is here today after injections with Dr. Beverly. 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 For detailed history I refer to the note of ELENA Covington of May 2025. In summary, the patient has neurogenic claudication symptoms that has significantly progressed in the last 6 months. Walking and standing is difficult. Sitting down alleviates his symptoms. He has tried all forms of conservative treatments including physical therapy, Pilates, injections and even a spinal cord stimulator which were not helpful. On exam, he walks in a flexed position. No motor or sensory deficits. Dynamic lumbar x-rays show a stable grade 1 L3-4 spondylolisthesis, which is also seen at the MRI. This is the level where he has severe spinal stenosis. The MRI also shows lumbar degenerative disc disease L1-L2 L2 L3 and L4-L5 without significant spinal stenosis. In summary, this patient is suffering from classic neurogenic claudication symptoms most likely associated with a severe L3-4 spinal stenosis. Options would be to do a simple decompression in the form of an L3-4 laminotomy or to perform a lumbar fusion due to the presence of a minimal spondylolisthesis. The patient denies any back pain and the MRI is not suspicious for instability at the L3-4 level. I recommended a simple decompression L3-4 with a notion that he might need a fusion in the future if the surgery is temporarily successful. He is scheduled for 11/21/2024. I spent 15 minutes in his consult for history, review of images and discussing plan of care with the patient and his . Barak Hardin MD, PhD Spine Fellowship Trained Neurosurgeon Director, [facility] Orders: Orders XR lumbar spine 4V min Today M48.062 - Spinal stenosis, lumbar region with neurogenic claudication, R10.31 - Right lower quadrant pain Coding Level of Care Code Est Pt Level 5 (01979) Diagnoses Right lower quadrant abdominal pain R10.31
--- OUTSIDE RECORDS SUMMARY | 2025-08-30 17:24 | XMS_ITS | Clinical Summary ---
Author Organization [facility] Address [address] [place] [phone] Phone Care Team Providers Care Market Research Manager Name Role Phone Roberto Poe MD Primary [...] topic Medical Devices Not on file Insurance [employer] MEDEX SUPPLEMENT MEDICARE PART A & B [employer] MEDEX SUPPLEMENT MEDICARE PART A & B [employer] MEDEX SUPPLEMENT [employer] MEDEX SUPPLEMENT [employer] MEDEX SUPPLEMENT MEDICARE PART A & B [employer] MEDEX SUPPLEMENT MEDICARE PART A & B [employer] MEDEX SUPPLEMENT MEDICARE PART A & B [employer] MEDEX SUPPLEMENT MEDICARE PART A & B Care Teams Market Research Manager Relationship Specialty Start Date End Date Roberto Poe MD [address] [place] [id number] PCP - General Internal Medicine 01/30/25 Additional Source Comments The information contained in this document represents components of the legal health record. It is not the complete legal health record.[facility]
== END 2025-08-30 14:35 | disposition home or self-care (01) ==
LOC: HO.HNS 13:18
PROVIDERS: PCP Internal Medicine; Visit Provider Neurological Surgery
DX: R10.31 Right lower quadrant pain (principal)
CPT/HCPCS: 99214

== ENCOUNTER → 2025-08-30 13:52 | Outpatient (BNV) | payer MEDICARE, SELFPAY | PROVIDERS: PCP Internal Medicine; Visit Provider Radiology Diagnostic Radiology | DX: M48.062 Spinal stenosis, lumbar region with neurogenic claudication (principal); M51.369 Other intervertebral disc degeneration, lumbar region without mention of lumbar back pain or lower extremity pain; M47.816 Spondylosis without myelopathy or radiculopathy, lumbar region | CPT/HCPCS: 72110 ==

== ENCOUNTER 2025-09-18 09:12 | Outpatient (AMB) | payer MEDICARE, SELFPAY ==
[2025-09-18 09:17] VITALS: BP 128/74; PULSE 63; TEMP 36.4; O2SAT 98; BMI 28.4
--- NOTE | 2025-09-18 09:17 | AM.OFFWIN_ITS ---
Intake Vital Signs 09/18/25 09:17 Height 5 ft 11 in Weight 204 lb BMI 28.4 BP 128/74 Blood Pressure Location Rt brachial Position Sitting Pulse 63 Pulse Source Pulse Oximeter Temp 97.6 F Temp Source Oral Pulse Oximetry (%) 98 Oxygen Delivery Method Room Air Intake Visit Reasons: EP Sinus Congestion Intake Note: Patient presents c/o sinus congestion/pressure x4 days. Patient Tobacco Use Status: Never used Tobacco Allergies No Known Allergies (No Known Allergies*) Allergy (Verified 09/18/25 09:20) HPI HPI Comments History of Present Illness Details History of Present Illness - The patient is a 74-year-old male who presents with symptoms of a sinus infection that began three to four days ago after having a cold. - His symptoms include a stuffy nose and a sinus headache, and he reports this is a typical presentation for him. - He has tried Sudafed without relief an d denies any fever or cough. - The patient reports a history of simil ar episodes for which his previous physician, Dr. Jalloh, would prescribe a Z-Darrin, which he has found to be effective. - He denies KERN, cough, ear pain, sore th roat, abd pain, or n/v/d. - He denies sick contacts. - He denies smoking. Physical Exam General: Cooperative, healthy appearing, comfortable, no acute distress and well developed Head: Normal to inspection Ears: Hearing grossly normal bilaterally. No tragus or mastoid tenderness noted. Auditory canals clear bilaterally. TM's normal, not bulging. No fluid noted. Nose: Normal external nose present. Moist mucosa. Turbinates normal bilaterally, not boggy. Face and sinus: Tenderness to palpation of the frontal and maxillary sinuses bilaterally. Neck: Normal visual inspection and Yes full ROM. No lymphadenopathy noted. Respiratory: Normal respiratory effort and able to speak in complete sentences. Clear to auscultation bilaterally Cardiovascular: Regular rate and rhythm. Normal S1 and S2 GI: Normal to inspection. Soft to palpation and nontender, nondistended. No guarding noted. 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 Fall Right shoulder injury Generalized anxiety disorder Essential hypertension Benign prostate hyperplasia Degenerative joint disease (DJD) of lumbar spine Surgical History History of colonoscopy (~11/05/19) Hx of hernia repair History of melanoma Family History Mother Lung cancer Social History Household Members: Family Housing: House Alcohol intake: current Alcohol intake frequency: holidays/special occasions only Patient Tobacco Use Status: Never used Tobacco e-Cigarette/Vaping Use: Never Used Substance Use Type: Marijuana service: No Current occupational status: retired Cognitive needs: No Hearing needs: No Vision needs: Yes (reading glasses) Review of Systems Const All systems reviewed & are unremarkable except as noted in HPI and below Physical Exam Vital Signs: Last Vital Signs Temp 97.6 F 09/18/25 09:17 Pulse 63 09/18/25 09:17 BP 128/74 09/18/25 09:17 Pulse Ox 98 09/18/25 09:17 Oxygen Delivery Method Room Air 09/18/25 09:17 BMI result Body Mass Index 28.4 Assessment & Plan Assessment & Plan (1) Sinus congestion: Code(s): R09.81 - Nasal congestion Plan Most likely a sinus infection vs URI vs viral illness plan - tylenol or motrin as needed for pain or fever - steam showers - z-darrin as directed - flonase or zyrtec d daily - follow up with PCP Medications: New azithromycin For 250 mg dose pack: take 500 mg today (day 1), then 250 mg for 4 days (days 2-5) PO 6 tabs 0RF Coding Level of Care Code Est Pt Level 3 (90311) Diagnoses Sinus congestion R09.81
--- OUTSIDE RECORDS SUMMARY | 2025-09-18 09:20 | XMS_ITS | Clinical Summary ---
Author Organization [facility] Address [address] [place] [phone] Phone Care Team Providers Care Seafood Harvester Name Role Phone Roberto Poe MD Primary [...] topic Medical Devices Not on file Insurance [employer] (acquired by [employer]) MEDEX SUPPLEMENT MEDICARE PART A & B [employer] (acquired by [employer]) MEDEX SUPPLEMENT MEDICARE PART A & B [employer] (acquired by [employer]) MEDEX SUPPLEMENT [employer] (acquired by [employer]) MEDEX SUPPLEMENT [employer] (acquired by [employer]) MEDEX SUPPLEMENT MEDICARE PART A & B [employer] (acquired by [employer]) MEDEX SUPPLEMENT MEDICARE PART A & B [employer] (acquired by [employer]) MEDEX SUPPLEMENT MEDICARE PART A & B [employer] (acquired by [employer]) MEDEX SUPPLEMENT MEDICARE PART A & B Care Teams Seafood Harvester Relationship Specialty Start Date End Date Roberto Poe MD [address] [place] [phone] PCP - General Internal Medicine 01/30/25 Additional Source Comments The information contained in this document represents components of the legal health record. It is not the complete legal health record.[facility]
== END 2025-09-18 09:49 | disposition home or self-care (01) ==
PROVIDERS: PCP Internal Medicine; Visit Provider Physician Assistant Medical
DX: R09.81 Nasal congestion (principal)

== ENCOUNTER → 2025-09-18 09:12 | Outpatient (BNVA) | payer MEDICARE, SELFPAY | PROVIDERS: PCP Internal Medicine; Visit Provider Physician Assistant Medical | DX: R09.81 Nasal congestion (principal) | CPT/HCPCS: 99212 ==